=== PATIENT | female | born 1995 | race Caucasian/White ===

== ENCOUNTER 2016-11-05 14:17 | Day surgery (SDC) | payer BC, MEDICAID ==
[~2016-11-05] VITALS: Ht 175.3 cm; Wt 83.5 kg
[2016-11-05 14:50] LABS: BILIRUBIN,URINE NEGATIVE (NEGATIVE); KETONES,URINE NEGATIVE (NEGATIVE); LEUKOCYTE ESTERASE ,URINE 1+ (NEGATIVE); NITRITE,URINE NEGATIVE (NEGATIVE); PH,URINE 7 (5-9); PROTEIN,URINE NEGATIVE (NEGATIVE); UROBILINOGEN,URINE NORMAL (NORMAL)
[2016-11-05] MEDS ORDERED: LACTATED RINGERS 1,000 ML IV PRN (14:52)
[2016-11-05 14:58] LABS: WBC,URINE 0-2 /HPF
[2016-11-05] MEDS ORDERED: MIDAZOLAM 2 MG/2 ML (VERSED) VIAL IV ONE (15:00)
[2016-11-05] MEDS ORDERED: ceFAZolin 1,000 MG (ANCEF) VIAL ONE (15:03)
[2016-11-05] MEDS ORDERED: NORMAL SALINE (BAXTER MINI) 50 ML IV ONE (15:04)
[2016-11-05 15:11] LABS: BASOPHILS % (AUTO) 0 % (0-10); EOSINOPHILS % (AUTO) 0 % (0-10); LYMPHOCYTES # (AUTO) 1.7 X 10^3 (1.0-4.0); LYMPHOCYTES % (AUTO) 20 % (12-44); MEAN CORPUSCULAR HEMOGLOBIN 29 PG (25-34); MEAN CORPUSCULAR HGB CONC 35 G/DL (32-36); MEAN CORPUSCULAR VOLUME 83 FL (80-99); MEAN PLATELET VOLUME 9.9 FL (7.4-10.4); MONOCYTES # (AUTO) 0.6 X 10^3 (0.0-1.0); MONOCYTES % (AUTO) 7 % (0-12); NEUTROPHILS # (AUTO) 6.3 X 10^3 (1.8-7.8); NEUTROPHILS % (AUTO) 73 % (42-75); PLATELET COUNT 220 10^3/uL (130-400); RED BLOOD COUNT 4.58 10^6/uL (4.35-5.85); RED CELL DISTRIBUTION WIDTH 12.1 % (10.0-14.5); WHITE BLOOD COUNT 8.7 10^3/uL (4.3-11.0)
[2016-11-05 15:41] VITALS: BP 121/66
[2016-11-05] MEDS ORDERED: ceFAZolin 1 GM/NS 50 ML IVPB IV ONE ×2 (15:45)
[2016-11-05] MEDS ORDERED: clindamycin PO (15:49)
[2016-11-05] MEDS ORDERED: LACTATED RINGERS 1,000 ML IV ONE ×2 (16:06→17:13)
[2016-11-05] MEDS ORDERED: ONDANSETRON 4 MG/2 ML (SDV) Z0FRAN ONE (16:06)
[2016-11-05] MEDS ORDERED: fentaNYL INJECTION 100 MCG/2 ML AMP ONE (16:06)
[2016-11-05] MEDS ORDERED: DEXAMETHASONE PF 10 MG/ML (DECADRON) VIAL ONE (16:06)
[2016-11-05] MEDS ORDERED: proPOfol 200 MG/20 ML (DIPRIVAN) VIAL IV ONE (16:06)
[2016-11-05] MEDS ORDERED: MIDAZOLAM 2 MG/2 ML (VERSED) VIAL ONE (16:06)
[2016-11-05] MEDS ORDERED: SEVOFLURANE (ULTANE) 15 ML INHAL SOLN ONE ×3 (16:10→17:13)
[2016-11-05] MEDS ORDERED: KETOROLAC 30 MG/ML VIAL ONE (17:05)
[2016-11-05] MEDS ORDERED: morphine INJ 10 MG/ML 1ML (SYR OR VIAL) ONE (17:05)
--- NOTE | 2016-11-05 17:19 | Operative Report ---
Operative Report Date of Procedure/Surgery Nov 05, 2016 Post-Operative Diagnosis MISSED Procedure Performed Name of Procedure: SUCTION DILATION AND CURETTAGE Description of Procedure Instructional Resource Teacher Shana Leija, MS III Anesthesia Type: General Estimated blood loss (mL): 200 Specimen(s) collected products of conception Indications missed ab, no hearttones at 9 weeks Procedure with informed consent the patient was taken to the operating room where general anesthetic was found to be adequate. She was prepped and draped in the usual sterile fashion in the dorsal lithotomy position. There is no bleeding. The bladder was drained of clear yellow urine. A speculum was placed in the vagina and the cervix was grasped with a tenaculum. The uterus was gently sounded to approximately 10 cm. the cervix was now gently sounded with Liu dilators to allow insertion of a 9 mm curved curet. A gentle suction curette was done revealing products of conception and blood clots. Once this was completed I followed this up with a sharp curet until a gritty texture was heard. There is minimal bleeding noted. The tenaculum was removed from the cervix. The patient was taken to the recovery room in stable condition. Sponge and instrument counts were correct 2. Allergies and Home Medications Allergies Coded Allergies: No Known Drug Allergies (Unverified , 11/05/16) Home Medications PO QID (Reported) MANUEL AVERY DO Nov 05, 2016 17:19
[2016-11-05] MEDS ORDERED: D5 LR IV SOLUTION 1,000 ML IV SCH (17:20)
[2016-11-05] MEDS ORDERED: IBUP-1773 PO (17:27)
[2016-11-05] MEDS ORDERED: METH0.2T42 PO (17:27)
[2016-11-05] MEDS ORDERED: HYDR-3812 PO (17:27)
--- NOTE | 2016-11-05 17:29 | Discharge Inst-Women's Service ---
Discharge Inst-Women's Serv Depart Medication/Instructions New, Converted or Re-Newed RX: RX on Chart Instructions apply bactroban bid to lesion on buttock Expect bleeding, spotting for up to 1 week. Call if bleeding greater than 1 pad per hour. Or passage of tissue. Final Diagnosis missed skin lesion right buttock Consults/Follow Up Additional Follow Up: Yes (2-4 weeks) Activity Activity: Activity as Tolerated Driving Instructions: No Driving for 24 Hours NO SMOKING: NO SMOKING Nothing Inside Vagina: No Douching, No [place], No Tampons Diet Discharge Diet: No Restrictions Symptoms to Report to DrEmerita: Bleeding Excessive, Pain Increased, Fever Over 101 Degrees F, Vaginal Bleeding Increase, Vaginal Discharge Foul For Any Problems or Questions: Contact Your Physician MANUEL AVERY DO Nov 05, 2016 17:29
[2016-11-05] MEDS ORDERED: MEPERIDINE (DEMEROL) INJ 50 MG/ML IVP PRN (17:30)
[2016-11-05] MEDS ORDERED: ONDANSETRON 4 MG/2 ML (SDV) Z0FRAN IVP PRN ×2 (17:30)
[2016-11-05] MEDS ORDERED: HYDROcodone/APAP 5 MG/325 MG (LORTAB) TAB PO PRN (17:30)
[2016-11-05] MEDS ORDERED: KETOROLAC 30 MG/ML VIAL IVP ONE (17:30)
[2016-11-05] MEDS ORDERED: HYDROmorphone (DILAUDID) 2 MG/ML VIAL IVP PRN (17:30)
[2016-11-05] MEDS ORDERED: morphine INJ 10 MG/ML 1ML (SYR OR VIAL) IVP PRN (17:30)
[2016-11-05] MEDS ORDERED: KETOROLAC 30 MG/ML VIAL IVP PRN (17:30)
[2016-11-05] MEDS ORDERED: METHYLERGONOVINE 0.2 MG/ML (METHERGINE) AMP IM ONE (17:30)
[2016-11-05] MEDS ORDERED: MUPIROCIN 2% OINT 22 GM (BACTROBAN) TUBE TOP SCH (17:30)
[2016-11-05] MEDS ORDERED: IBUPROFEN 600 MG (MOTRIN) TAB PO SCH (18:00)
[2016-11-05 18:50] VITALS: BP 108/61
[2016-11-05 20:00] VITALS: BP 113/68
[2016-11-05] MEDS ORDERED: METHYLERGONOVINE 0.2 MG (MEHTERGINE) TAB PO SCH (21:00)
[2016-11-17] MEDS ORDERED: METH0.2T47 PO (22:41)
[2016-11-17] MEDS ORDERED: HYDR-3729 PO (22:41)
== END 2016-11-05 22:25 | disposition home or self-care (01) ==
LOC: SDC 14:17 → WS 18:37 → SDC 22:25
PROVIDERS: ATTEND Obstetrics & Gynecology
DX: O02.1 Missed abortion (principal); Z3A.09 9 weeks gestation of pregnancy
CPT/HCPCS: 36415; 81000; 85025; 86850; 86900; 86901; 87081; 94664; 96361

== ENCOUNTER 2016-11-17 17:55 | Day surgery (SDC) | payer BC, MEDICAID ==
[~2016-11-17] VITALS: Ht 175.3 cm; Wt 83.5 kg
[2016-11-17 02:40] VITALS: BP 98/67
[~2016-11-17 17:55] MED LIST: HYDR-3812 PO; IBUP-1773 PO; METH0.2T42 PO; clindamycin PO
[2016-11-17 20:15] LABS: BILIRUBIN,URINE NEGATIVE (NEGATIVE); KETONES,URINE NEGATIVE (NEGATIVE); LEUKOCYTE ESTERASE ,URINE NEGATIVE (NEGATIVE); NITRITE,URINE NEGATIVE (NEGATIVE); PH,URINE 5 (5-9); PROTEIN,URINE NEGATIVE (NEGATIVE); UROBILINOGEN,URINE NORMAL (NORMAL)
[2016-11-17 20:16] LABS: BASOPHILS % (AUTO) 0 % (0-10); EOSINOPHILS # (AUTO) 0.1 10^3/uL (0.0-0.3); EOSINOPHILS % (AUTO) 1 % (0-10); LYMPHOCYTES # (AUTO) 2.5 X 10^3 (1.0-4.0); LYMPHOCYTES % (AUTO) 33 % (12-44); MEAN CORPUSCULAR HEMOGLOBIN 29 PG (25-34); MEAN CORPUSCULAR HGB CONC 34 G/DL (32-36); MEAN CORPUSCULAR VOLUME 85 FL (80-99); MEAN PLATELET VOLUME 9.8 FL (7.4-10.4); MONOCYTES # (AUTO) 0.7 X 10^3 (0.0-1.0); MONOCYTES % (AUTO) 8 % (0-12); NEUTROPHILS # (AUTO) 4.4 X 10^3 (1.8-7.8); NEUTROPHILS % (AUTO) 57 % (42-75); PLATELET COUNT 318 10^3/uL (130-400); RED BLOOD COUNT 4.46 10^6/uL (4.35-5.85); RED CELL DISTRIBUTION WIDTH 12.1 % (10.0-14.5); WHITE BLOOD COUNT 7.7 10^3/uL (4.3-11.0)
[2016-11-17 20:19] LABS: INR 1.1 (0.8-1.4); PROTHROMBIN TIME PATIENT 13.5 SEC (12.2-14.7)
[2016-11-17 20:26] LABS: ALANINE AMINOTRANSFERASE 19 U/L (0-55); ALBUMIN 4.4 G/DL (3.2-4.5); ANION GAP 9 MMOL/L (5-14); ASPARTATE AMINO TRANSFERASE 17 U/L (5-34); BILIRUBIN,TOTAL 0.8 MG/DL (0.1-1.0); BLOOD UREA NITROGEN 10 MG/DL (7-18); BUN/CREATININE RATIO 14; CALCIUM 9.3 MG/DL (8.5-10.1); CARBON DIOXIDE 24 MMOL/L (21-32); CHLORIDE 104 MMOL/L (98-107); CREATININE SERUM 0.72 MG/DL (0.60-1.30); GFR ESTIMATED > 60; GLUCOSE 83 MG/DL (70-105); POTASSIUM 3.7 MMOL/L (3.6-5.0); SODIUM 137 MMOL/L (135-145); TOTAL PROTEIN 7.2 G/DL (6.4-8.2)
--- NOTE | 2016-11-17 20:46 | ED GU-Female ---
General Chief Complaint: -Female Stated Complaint: VAGINAL BLEEDING Nursing Triage Note: PT REPORTS HAD A D&C ON Tuesday11/05/[address] AVERY. PT REPORTS SHE CALLED DR. AVERY TODAY AND WAS TOLD TO COME TO ED BECAUSE SHE HAS CONTINUED TO PASS CLOTS AND BLEED AFTER PROCEDURE. PT ALSO REPORTS CRAMPING/BACK ACHE. Nursing Sepsis Screen: No Definite Risk Source: patient, family (patient's mother), spouse Exam Limitations: no limitations History of Present Illness Time seen by provider: 20:46 Initial Comments 21 yo female presents to the ED with c/o lower abdominal cramping and vaginal bleeding. Patient had a D&C on 11/05/[address] Avery. Patient reports continued bleeding. Passed large clots on Tuesday. Does report suprapubic cramping with occasional sharp pains radiates into the low back intermittently. Nothing by mouth since 1544 today. Did have one episode of chills and lightheadedness while at work today. Denies fevers. Timing/Duration: other (10 days) Severity/Quality: cramping, sharp Location: suprapubic Radiation: back Activities at Onset: none Prior Genitourinary Problems: none Sexual [place] History: less than 2 months ago, single partner Modifying Factors: Worsens With Palpation Allergies and Home Medications Allergies Coded Allergies: No Known Drug Allergies (Unverified , 11/05/16) Home Medications Ibuprofen 600 Mg Tablet #40 600 MG PO Q6HR Prescribed by: MANUEL AVERY on 11/05/161726 Methylergonovine Maleate 0.2 Mg Tablet #9 0.2 MG PO TID Prescribed by: MANUEL AVERY on 11/05/167 Constitutional: see HPI chillsNo diaphoresis, No fever, malaise EENTM: no symptoms reported Respiratory: No cough, No short of breath Cardiovascular: No chest pain, No edema, No syncope Gastrointestinal: see HPI abdominal painNo constipation, No diarrhea, loss of appetite nauseaNo vomiting Genitourinary: see HPIdenies burning, discharge (vaginal bleeding)denies dysuria, denies frequency, denies flank pain, pain : No Musculoskeletal: see HPI Skin: no symptoms reported Psychiatric/Neurological: No Symptoms Reported All Other Systemes Reviewed Negative Unless Noted: Yes (Negative excepted noted.) Past Mkcxvdw-Yqbagp-Xvcfok Hx Patient Social History Alcohol Use: Rarely Uses Recreational Drug Use: No Smoking Status: Never a Smoker Recent Foreign Travel: No Contact w/Someone Who Travel: No Recent Infectious Disease Expo: No Recent Hopitalizations: No Physical Abuse Screen: No Sexual Abuse: No Immunizations Up To Date Date of Influenza Vaccine: Sep 30, 2016 Seasonal Allergies Seasonal Allergies: No Surgeries HX Surgeries: Yes (D&C) Surgeries: Tonsillectomy Respiratory Hx Respiratory Disorders: No Cardiovascular Hx Cardiac Disorders: No Neurological Hx Neurological Disorders: No Reproductive System : No Hx : 1 Hx Para: 0 Hx Total # of Abortions (Spona: 1 Hx Reproductive Disorders: No Sexually Transmitted Disease: No HIV/AIDS: No Female Reproductive Disorders: Denies Genitourinary Hx Genitourinary Disorders: No Gastrointestinal Hx Gastrointestinal Disorders: No Musculoskeletal Hx Musculoskeletal Disorders: No Endocrine Hx Endocrine Disorders: No HEENT HX ENT Disorders: No Cancer Hx Cancer: No Psychosocial Hx Psychiatric Problems: No Integumentary HX Skin/Integumentary Disorder: Yes (sores on forearms with staff infection ( not MRSA)) Blood Transfusions Hx Blood Disorders: No Reviewed Nursing Assessment Reviewed/Agree w Nursing PMH: Yes Family Medical History Significant Family History: No Pertinent Family Hx Physical Exam Vital Signs Vital Sign - Last 12Hours 11/17/16 19:57 Temp 97.8 Pulse 72 Resp 18 B/P 119/67 Pulse Ox 97 Capillary Refill : Less Than 3 Seconds General Appearance: WD/WN no apparent distress HEENT: PERRL/EOMI pharynx normal Neck: supple normal inspection Cardiovascular: normal peripheral pulses regular rate, rhythm no edema no murmur Respiratory: lungs clear normal breath sounds no respiratory distress Gastrointestinal: normal bowel sounds soft no organomegalyNo distended, guarding (mild suprapubic guarding)No rebound, tenderness (lower abdominal tenderness) Back: normal inspection no CVA tenderness Extremities: no pedal edema normal capillary refill Neurologic/Psychiatric: alert normal mood/affect oriented x 3 Skin: normal color warm/dry Progress/Results/Core Measures Results/Orders Lab Results Laboratory Tests Test 11/17/16 19:53 11/17/16 20:05 Range/Units Activated Partial Thromboplast Time 30 24-35 SEC Alanine Aminotransferase (ALT/SGPT) 19 0-55 U/L Albumin 4.4 3.2-4.5 G/DL Alkaline Phosphatase 48 40-136 U/L Anion Gap 9 5-14 MMOL/L Aspartate Amino Transf (AST/SGOT) 17 5-34 U/L BUN/Creatinine Ratio 14 Basophils # (Auto) 0.0 0.0-0.1 10^3/uL Basophils (%) (Auto) 0 0-10 % Blood Urea Nitrogen 10 7-18 MG/DL Calcium Level 9.3 8.5-10.1 MG/DL Carbon Dioxide Level 24 21-32 MMOL/L Chloride Level 104 98-107 MMOL/L Creatinine 0.72 0.60-1.30 MG/DL Eosinophils # (Auto) 0.1 0.0-0.3 10^3/uL Eosinophils (%) (Auto) 1 0-10 % Estimat Glomerular Filtration Rate > 60 Glucose Level 83 70-105 MG/DL Hematocrit 38 35-52 % Hemoglobin 12.9 11.5-16.0 G/DL INR Comment 1.1 0.8-1.4 Lymphocytes # (Auto) 2.5 1.0-4.0 X 10^3 Lymphocytes (%) (Auto) 33 12-44 % Mean Corpuscular Hemoglobin 29 25-34 PG Mean Corpuscular Hemoglobin Concent 34 32-36 G/DL Mean Corpuscular Volume 85 80-99 FL Mean Platelet Volume 9.8 7.4-10.4 FL Monocytes # (Auto) 0.7 0.0-1.0 X 10^3 Monocytes (%) (Auto) 8 0-12 % Neutrophils # (Auto) 4.4 1.8-7.8 X 10^3 Neutrophils (%) (Auto) 57 42-75 % Platelet Count 318 130-400 10^3/uL Potassium Level 3.7 3.6-5.0 MMOL/L Prothrombin Time 13.5 12.2-14.7 SEC Red Blood Count 4.46 4.35-5.85 10^6/uL Red Cell Distribution Width 12.1 10.0-14.5 % Sodium Level 137 135-145 MMOL/L Total Bilirubin 0.8 0.1-1.0 MG/DL Total Protein 7.2 6.4-8.2 G/DL White Blood Count 7.7 4.3-11.0 10^3/uL Urine Bacteria NONE /HPF Urine Bilirubin NEGATIVE NEGATIVE Urine Casts NONE /LPF Urine Clarity SLIGHTLY CLOUDY Urine Color YELLOW Urine Crystals NONE /LPF Urine Culture Indicated NO Urine Glucose (UA) NEGATIVE NEGATIVE Urine Ketones NEGATIVE NEGATIVE Urine Leukocyte Esterase NEGATIVE NEGATIVE Urine Mucus NEGATIVE /LPF Urine Nitrite NEGATIVE NEGATIVE Urine Protein NEGATIVE NEGATIVE Urine RBC 5-10 H /HPF Urine RBC (Auto) 5+ H NEGATIVE Urine Specific [place] 1.020 1.016-1.022 Urine Squamous Epithelial Cells 2-5 /HPF Urine Urobilinogen NORMAL NORMAL MG/DL Urine WBC NONE /HPF Urine pH 5 5-9 My Orders Orders-IRON ROSADO Cbc With Automated Diff (11/17/16 20:09) Comprehensive Metabolic Panel (11/17/16 20:09) Protime With Inr (11/17/16 20:09) Partial Thromboplastin Time (11/17/16 20:09) Ua Culture If Indicated (11/17/16 20:09) Saline Lock/Iv-Start (11/17/16 20:09) Us Non Ob Pelvis Comp/Transvag (11/17/16 20:09) Ketorolac Injection (Toradol Injection) (11/17/16 21:18) Ondansetron Injection (Zofran Injectio (11/17/16 21:30) Ns Iv 1000 Ml (Sodium Chloride 0.9%) (11/17/16 21:18) Ondansetron Injection (Zofran Injectio (11/17/16 22:00) Famotidine Injection (Pepcid Injection) (11/17/16 21:46) Medications Given in ED Current Medications Medications Dose Ordered Sig/Deny Route Start Time Stop Time Status Last Admin Dose Admin Ondansetron HCl 4 mg 4 mg ONCE ONCE IVP 11/17/16 21:30 11/17/16 21:31 DC 11/17/16 21:24 4 MG Sodium Chloride 1,000 ml @ 0 mls/hr Q0M ONCE IV 11/17/16 21:18 11/17/16 21:20 DC 11/17/16 21:24 0 MLS/HR Vital Signs/I&O Vital Sign - Last 12Hours 11/17/16 19:57 Temp 97.8 Pulse 72 Resp 18 B/P 119/67 Pulse Ox 97 Blood Pressure Mean: 84 Diagnostic Imaging Diagonstic Imaging: Ultrasound Plain Films/CT/US/NM/MRI: pelvis Comments FINDINGS: Transabdominal imaging shows the uterus to measure 8.3 x 8.6 x 4.2 cm. There are retained products present within the uterus. There is fluid in the uterine cavity as well with endometrial cavity width of 2 cm. Transabdominal imaging failed to visualize the ovaries. No free fluid is demonstrated. IMPRESSION: Findings are consistent with retained products of conception with associated hemorrhage in the uterine cavity, as described. Dictated by: Dictated on workstation # [id number] Reviewed: Reviewed by Me (radiology report reviewed by me) Departure Communication Time/Spoke to Admitting Phy: 21:22 Communication 2122 patient case discussed with Dr. German, requests surgery crew to be contacted for D&C tonight. 2144 Dr. German present in the ED to evaluate patient and for D&C. Final Cleaner notified. Progress Notes All laboratory findings and diagnostic findings discussed with the patient and family. Plan for D&C by Dr. eGrman discussed with the patient. Patient voiced understanding and agrees with the treatment plan. Patient reports improvement in symptoms with the Toradol, however continues to have nausea. Repeat Zofran 4 mg 1 dose and Pepcid 20 mg IV 1 dose. Patient case and plan for admission discussed with Dr. Salazar, she agrees with the treatment plan. Impression Impression: Primary Impression: Retained products of conception Disposition: ADMITTED INPATIENT Condition: Stable Decision to Admit Reason: Admit from ER (General) Decision to Admit/Date: Nov 17, 2016 Time/Decision to Admit Time: 21:25 Departure-Patient Inst. Referrals: MANUEL AVERY DO (PCP) Primary Care Physician IRON ROSADO Nov 17, 2016 20:46
--- NOTE | 2016-11-17 21:05 | Diagnostic Imaging Report ---
INDICATION: D&C on 11/05/2016. Continued to pass blood and clots with cramping. Low-grade fever. EXAMINATION: Non-OB pelvic sonogram. FINDINGS: Transabdominal imaging shows the uterus to measure 8.3 x 8.6 x 4.2 cm. There are retained products present within the uterus. There is fluid in the uterine cavity as well with endometrial cavity width of 2 cm. Transabdominal imaging failed to visualize the ovaries. No free fluid is demonstrated. IMPRESSION: Findings are consistent with retained products of conception with associated hemorrhage in the uterine cavity, as described. Dictated by: Dictated on workstation # [id number]
[2016-11-17] MEDS ORDERED: NS IV 1000 ML 1,000 ML IV ONE (21:18)
[2016-11-17] MEDS ORDERED: KETOROLAC 30 MG/ML VIAL IVP STA (21:18)
[2016-11-17] MEDS ORDERED: ONDANSETRON 4 MG/2 ML (SDV) Z0FRAN IVP ONE ×2 (21:30→22:00)
[2016-11-17] MEDS ORDERED: FAMOTIDINE 20MG/2ML IV (PEPCID) ONE (21:41)
[2016-11-17] MEDS ORDERED: FAMOTIDINE 20MG/2ML IV (PEPCID) IV STA (21:46)
[2016-11-17] MEDS ORDERED: MIDAZOLAM 2 MG/2 ML (VERSED) VIAL ONE (21:49)
[2016-11-17] MEDS ORDERED: SUCCINYLCHOLINE INJ 100 MG/5 ML SYR ONE (21:49)
[2016-11-17] MEDS ORDERED: proPOfol 200 MG/20 ML (DIPRIVAN) VIAL IV ONE (21:49)
[2016-11-17] MEDS ORDERED: fentaNYL INJECTION 100 MCG/2 ML AMP ONE (21:49)
[2016-11-17] MEDS ORDERED: DOXYCYCLINE 100 MG (VIBRAMYCIN) TABLET PO STA (21:52)
--- NOTE | 2016-11-17 21:53 | History & Physical-OB/GYN ---
History of Present Illness History of Present Illness Reason for visit/HPI Pankaj is a 21 y/o G1 patient of Dr. Avery who underwent suction D&C on 11/05/16 with pathology c/w products of conception. She presents this evening after having continued bleeding with clots since the procedure. She thought she might be febrile today with hot flashes and continued cramping (did not take her temp however). She also felt dizzy, but did not pass out. She denies any other complaints. Date of Admission 11/17/16 I consulted on this patient on 11/17/16 21:48 Attending Physician Pearl Acuña MD Admitting Physician Dorcas Avery DO Consult Allergies and Home Medications Allergies Coded Allergies: No Known Drug Allergies (Unverified , 11/05/16) Home Medications Ibuprofen 600 Mg Tablet #40 600 MG PO Q6HR Prescribed by: DORCAS AVERY on 11/05/16 1727 Methylergonovine Maleate 0.2 Mg Tablet #9 0.2 MG PO TID Prescribed by: DORCAS AVERY on 11/05/16 1727 Past Mqdiezt-Llptbo-Hdeabz Hx Patient Social History Alcohol Use: Rarely Uses Recreational Drug Use: No Smoking Status: Never a Smoker Physical Abuse Screen: No Sexual Abuse: No Recent Foreign Travel: No Contact w/other who traveled: No Recent Hopitalizations: No Recent Infectious Disease Expo: No Immunizations Up To Date Date of Influenza Vaccine: Sep 30, 2016 Seasonal Allergies Seasonal Allergies: No Surgeries HX Surgeries: Yes (DNC) Surgeries: Tonsillectomy Respiratory Hx Respiratory Disorders: No Cardiovascular Hx Cardiovascular Disorders: No Neurological Hx Neurological Disorders: No Reproductive System Hx Reproductive Disorders: No Sexually Transmitted Disease: No HIV/AIDS: No Genitourinary Hx Genitourinary Disorders: No Gastrointestinal Hx Gastrointestinal Disorders: No Musculoskeletal Hx Musculoskeletal Disorders: No Endocrine Hx Endocrine Disorders: No HEENT HX ENT Disorders: No Cancer Hx Cancer: No Psychosocial Hx Psychiatric Problems: No Integumentary HX Skin/Integumentary Disorder: Yes (sores on forearms with staff infection ( not MRSA)) Blood Transfusions Hx Blood Disorders: No Constitutional: chills fever EENTM: no symptoms reported Respiratory: no symptoms reported Cardiovascular: No chest pain, No palpitations, No syncope Gastrointestinal: no symptoms reported Genitourinary: pain : No Musculoskeletal: no symptoms reported Skin: no symptoms reported Psychiatric/Neurological: No Symptoms Reported Physical Exam Physical Exam Vital Signs Vital Signs Date Time Temp Pulse Resp B/P Pulse Ox O2 Delivery O2 Flow Rate FiO2 11/17/16 19:57 97.8 72 18 119/67 97 Capillary Refill : Less Than 3 Seconds Labs Laboratory Tests 11/17/16 19:53: Activated Partial Thromboplast Time 30, Alanine Aminotransferase (ALT/SGPT) 19, Albumin 4.4, Alkaline Phosphatase 48, Anion Gap 9, Aspartate Amino Transf (AST/ SGOT) 17, BUN/Creatinine Ratio 14, Basophils # (Auto) 0.0, Basophils (%) (Auto) 0, Blood Urea Nitrogen 10, Calcium Level 9.3, Carbon Dioxide Level 24, Chloride Level 104, Creatinine 0.72, Eosinophils # (Auto) 0.1, Eosinophils (%) (Auto) 1, Estimat Glomerular Filtration Rate > 60, Glucose Level 83, Hematocrit 38, Hemoglobin 12.9, INR Comment 1.1, Lymphocytes # (Auto) 2.5, Lymphocytes (%) ( Auto) 33, Mean Corpuscular Hemoglobin 29, Mean Corpuscular Hemoglobin Concent 34 , Mean Corpuscular Volume 85, Mean Platelet Volume 9.8, Monocytes # (Auto) 0.7, Monocytes (%) (Auto) 8, Neutrophils # (Auto) 4.4, Neutrophils (%) (Auto) 57, Platelet Count 318, Potassium Level 3.7, Prothrombin Time 13.5, Red Blood Count 4.46, Red Cell Distribution Width 12.1, Sodium Level 137, Total Bilirubin 0.8, Total Protein 7.2, White Blood Count 7.7 11/17/16 20:05: Urine Bacteria NONE, Urine Bilirubin NEGATIVE, Urine Casts NONE, Urine Clarity SLIGHTLY CLOUDY, Urine Color YELLOW, Urine Crystals NONE, Urine Culture Indicated NO, Urine Glucose (UA) NEGATIVE, Urine Ketones NEGATIVE, Urine Leukocyte Esterase NEGATIVE, Urine Mucus NEGATIVE, Urine Nitrite NEGATIVE, Urine Protein NEGATIVE, Urine RBC 5-10H, Urine RBC (Auto) 5+H, Urine Specific [place] 1.020, Urine Squamous Epithelial Cells 2-5, Urine Urobilinogen NORMAL, Urine WBC NONE, Urine pH 5 Radiology Studies see sono - c/w products of conception General Appearance: No Apparent Distress Respiratory: No Accessory Muscle Use Cardiovascular: Normal Peripheral Pulses (pulse 70s) Abdominal: non tender, soft Gynecology/General: Other (deferred to OR) Assessment/Plan Assessment and Plan 21 y/o s/p D&C for missed AB on 11/05/[address] Avery presenting with continued vaginal bleeding, found to have retained products of conception No fever, no leukocytosis, no evidence of infection Rh+ Reviewed with pt and family indication for repeat D&C under ultrasound guidance. Risk of bleeding, infection, damage to surrounding structures, risk of adhesion formation and subsequent fertility issues reviewed. Will plan to continue with 24 hours of methergine Perioperative doxycycline for ppx Will plan to dc after procedure with close f/u with PEARL Nunez MD Nov 17, 2016 21:53
[2016-11-17] MEDS ORDERED: DOXYCYCLINE 100 MG (VIBRAMYCIN) TABLET ONE ×2 (21:56→23:05)
[2016-11-17] MEDS ORDERED: KETOROLAC 30 MG/ML VIAL ONE (22:11)
[2016-11-17] MEDS ORDERED: PROMETHAZINE INJ 25 MG/ML (PHENERGAN) AMP ONE (22:11)
[2016-11-17] MEDS ORDERED: morphine INJ 10 MG/ML 1ML (SYR OR VIAL) ONE (22:11)
[2016-11-17] MEDS ORDERED: SEVOFLURANE (ULTANE) 15 ML INHAL SOLN ONE (22:35)
[2016-11-17] MEDS ORDERED: LACTATED RINGERS 1,000 ML IV ONE (22:35)
[2016-11-17] MEDS ORDERED: D5 LR IV SOLUTION 1,000 ML IV SCH (22:38)
[2016-11-17] MEDS ORDERED: HYDR-3729 PO (22:41)
[2016-11-17] MEDS ORDERED: METH0.2T47 PO (22:41)
--- NOTE | 2016-11-17 22:42 | Discharge Inst-Women's Service ---
Discharge Inst-Women's Serv Depart Medication/Instructions New, Converted or Re-Newed RX: RX on Chart Final Diagnosis Retained products of conception Consults/Follow Up Additional Follow Up: Yes Orders/Referrals Keep follow-up as scheduled on 11/[address] Dennis Activity Driving Instructions: No Driving for 24 Hours (or while taking narcotic pain medications) NO SMOKING: NO SMOKING Nothing Inside Vagina: No Douching, No [place], No Tampons Other Activity Take methergine orally every 6 hours for 24 hours - this is to help stop bleeding Diet Discharge Diet: No Restrictions Symptoms to Report to : Bleeding Excessive, Pain Increased, Fever Over 101 Degrees F, Pain/Pressure in Chest, Vaginal Bleeding Increase, Dizziness/Fainting , Nausea/Vomiting, Shortness of Breath For Any Problems or Questions: Contact Your Physician, Go to Emergency Room Skin/Wound Care Bathing Instructions: CYRIL Gaines MD Nov 17, 2016 22:42
[2016-11-17] MEDS ORDERED: KETOROLAC 30 MG/ML VIAL IVP ONE (22:45)
[2016-11-17] MEDS ORDERED: ONDANSETRON 4 MG/2 ML (SDV) Z0FRAN IVP PRN (22:45)
[2016-11-17] MEDS ORDERED: LACTATED RINGERS 1,000 ML IV PRN (22:54)
--- NOTE | 2016-11-17 22:56 | OB/GYN Operative Report ---
Operative Report Date of Procedure: November 17, 2016 Preoperative Diagnosis: Retained products of conception Postoperative Diagnosis: Same Procedure: Suction dilatation and curettage under ultrasound guidance Surgeon: Pearl German MD Anesthesia: General Estimated Blood Loss: Minimal Specimens: Products of conception to pathology Indications for Procedure: This is a 21 y/o who underwent dilatation and curettage for missed on November 05, [address] Avery. She had continued bleeding and cramping and presented to the ER today for care. She was found to be hemodynamically stable with a very small drop in her hemoglobin since previously checked (13.3 to 12.9) with no leukocytosis or fever, but was found to have retained products of conception with active bleeding at the fundus and a 2cm endometrial stripe on ultrasound. Rh status was noted to be positive. She was counseled on therapy and elected to undergo repeat suction dilatation and curettage. I did ask for ultrasound guidance as this was her second procedure. Findings: Normal appearing external genitalia, small amount of blood in vaginal vault. Products of conception noted with suction curettage. Procedure: The patient was taken to the operating room with IV fluids running. Sequential compression devices were placed on her bilateral lower extremities. Loreta- operative doxycycline was administered. General anesthesia was obtained without difficulty. She was positioned in the dorsal lithotomy position with the use of Yellofin stirrups. She was prepped and draped in the typical sterile fashion. The ultrasound was positioned on the abdomen by the artificial insemination technician. The uterus was visualized with a thickened endometrial stripe and active bleeding noted at the fundus. The bladder was not emptied as it was aiding in visualization sonographically. A speculum was placed in the vagina. An Allis was placed on the anterior lip of the cervix. The cervix was dilated with Liu dilators to a level of 21 Liu. An 8 mm curved suction curette was inserted into the uterine cavity and activated; products of conception were noted at this time. The curette was slowly removed while turning it gently both clockwise and counterclockwise. This was repeated until no further products of conception were noted. A medium sharp curette was introduced into the uterine cavity and the cavity was gently curetted in a clockwise circumferential fashion until a gritty feeling was noted. The ultrasound revealed an endometrial stripe of 3mm and no active bleeding. All instruments were removed from the uterus, and very minimal bleeding was noted. The Allis was removed and the cervix was hemostatic. All instruments were removed from the vagina. The patient was awakened from anesthesia without difficulty and taken to recovery in stable condition. Complications: None Disposition: Recovery, stable - will discharge home with 24 hours of methergine and administer another dose of loreta-operative doxycycline Copies To 1: MANUEL AVERY ERIN N MD Nov 17, 2016 22:56
[2016-11-17] MEDS ORDERED: ONDANSETRON 4 MG/2 ML (SDV) Z0FRAN IV PRN (23:00)
[2016-11-17] MEDS ORDERED: METHYLERGONOVINE 0.2 MG (MEHTERGINE) TAB PO ONE (23:09)
[2016-11-17] MEDS: morphine INJ 10 MG/ML 1ML (SYR OR VIAL) IV PRN ×2 (23:11→23:24)
[2016-11-18] VITALS: BP 100/72
[2016-11-18] MEDS ORDERED: DOXYCYCLINE 100 MG (VIBRAMYCIN) TABLET PO SCH
[2016-11-18] MEDS ORDERED: ONDANSETRON 4 MG/2 ML (SDV) Z0FRAN ONE (00:10)
[2016-11-18] MEDS ORDERED: HYDROcodone/APAP 5 MG/325 MG (LORTAB) TAB PO PRN (00:15)
[2016-11-18 01:00] VITALS: BP 99/63
[2016-11-18] MEDS ORDERED: ONDANSETRON 8 MG (ZOFRAN) ORAL DISSOLVE TAB ONE (01:24)
[2016-11-18] MEDS ORDERED: ONDANSETRON 8 MG (ZOFRAN) ORAL DISSOLVE TAB PO ONE (01:30)
[2016-11-18] MEDS ORDERED: ONDA4TAB8 PO (01:44)
[2016-11-18] MEDS ORDERED: METHYLERGONOVINE 0.2 MG (MEHTERGINE) TAB PO ONE ×2 (02:34)
--- NOTE | 2016-11-18 07:52 | Diagnostic Imaging Report ---
PROCEDURE: Ultrasound guidance provided in the OR. INDICATION: D&C. FINDINGS AND IMPRESSION: Ultrasound guidance was provided in the OR to Dr. German for performing D&C. Provided images demonstrate normal size of the uterus and mildly distended urinary bladder. Dictated by: Dictated on workstation # [id number]
== END 2016-11-18 02:50 | disposition home or self-care (01) ==
LOC: EDUNIT# 17:55 → ER 17:57 → SDC 21:43 → WS 23:50 → SDC 11-18 02:50
PROVIDERS: ATTEND Obstetrics & Gynecology
DX: O02.1 Missed abortion (principal); Z3A.09 9 weeks gestation of pregnancy
CPT/HCPCS: 36415; 76830; 76856; 80053; 81000; 85025; 85610; 85730; 96361; 96374; 96375

== ENCOUNTER → 2017-02-03 | Outpatient (CLI) | payer BC, MEDICAID ==
[~2017-02-03] MED LIST changes: +HYDR-3729 PO; +METH0.2T47 PO; +ONDA4TAB8 PO
--- NOTE | 2017-02-03 18:18 | Diagnostic Imaging Report ---
INDICATION: Size and date discrepancy. TECHNIQUE: OB sonography performed with transvaginal views. FINDINGS: A single live intrauterine fetus is seen measuring at 6 weeks 3 days by crown-rump length with sonographic EDC of 09/26/2017. heart rate is 128 beats per minute. There is a corpus luteal cyst of the left ovary measuring 1.6 cm. IMPRESSION: Single live intrauterine fetus measuring 6 weeks 3 days in size. Recommend followup later in for full anatomical survey. There is a corpus luteal cyst of the left ovary measuring 1.6 cm. Dictated by: Dictated on workstation # [id number]
== END ==
LOC: RAD 14:05
PROVIDERS: ATTEND Obstetrics & Gynecology
DX: O26.841 Uterine size-date discrepancy, first trimester (principal); Z3A.01 Less than 8 weeks gestation of pregnancy
CPT/HCPCS: 76817

== ENCOUNTER → 2017-05-13 | Outpatient (CLI) | payer BC, MEDICAID ==
--- NOTE | 2017-05-13 17:04 | Diagnostic Imaging Report ---
INDICATION: survey. OB sonography performed in the routine fashion and compared to 02/03/17. FINDINGS: Single live intrauterine fetus is seen measuring 21 weeks 3 days in size. This is about 6 days larger than expected from original dates but probably within variation. heart rate is 143 beats per minute. Placenta is fundal with no evidence of previa. Amniotic fluid is qualitatively unremarkable. Cervical length is 3.5 cm. The survey showed no detectable abnormalities although four-chamber heart view and intracranial structures are not well seen due to position. Biometrical measurements are as follows: Biparietal 5.26 cm, age 22 weeks 0 days. Head circumference 18.45 cm, age 20 weeks 6 days. Abdominal circumference 16.13 cm, age 21 weeks 2 days. Femur length 3.51 cm, age 21 weeks 1 days. Sonographic estimate age: 21 weeks 3 days. Sonographic estimated date of delivery: 09/20/2017. Estimated Weight: 403 gm (+/- 59 gm). LMP percentile: 77%. heart rate: 143 beats per minute. Cervical length: 3.5 cm. number: 1 of 1. IMPRESSION: Single live intrauterine fetus measuring 21 weeks 3 days in size, this is about 6 days larger than expected from original dates but probably within variation, suggest continued followup as warranted. survey showed no detectable abnormalities although heart and intracranial structures are not well seen. Consider limited followup as clinically warranted. Dictated by: Dictated on workstation # [id number]
== END ==
LOC: RAD 12:31
PROVIDERS: ATTEND Obstetrics & Gynecology
DX: Z36 Encounter for antenatal screening of mother (principal); Z3A.21 21 weeks gestation of pregnancy
CPT/HCPCS: 76805; 76817

== ENCOUNTER 2017-08-01 23:24 | Outpatient (CLI) | payer BC, MEDICAID ==
[~2017-08-01] VITALS: Ht 175.3 cm; Wt 106.6 kg
[2017-08-01 23:42] VITALS: BP 148/85
[2017-08-01 23:50] LABS: BILIRUBIN,URINE NEGATIVE (NEGATIVE); KETONES,URINE NEGATIVE (NEGATIVE); LEUKOCYTE ESTERASE ,URINE 3+ (NEGATIVE); NITRITE,URINE NEGATIVE (NEGATIVE); PH,URINE 8 (5-9); PROTEIN,URINE NEGATIVE (NEGATIVE); UROBILINOGEN,URINE NORMAL (NORMAL)
[2017-08-01] MEDS ORDERED: PREN-142 PO (23:53)
[2017-08-01] MEDS ORDERED: LORA1TAB59 PO (23:55)
[2017-08-02] VITALS: BP 140/83
[2017-08-02 00:10] VITALS: BP 132/78
[2017-08-02] MEDS ORDERED: CEPH-507 PO (00:15)
== END 2017-08-02 00:20 | disposition home or self-care (01) ==
LOC: WSo 23:24 → LDRP 23:25 → WSo 08-02 00:20
PROVIDERS: ATTEND Obstetrics & Gynecology
DX: O23.93 Unspecified genitourinary tract infection in pregnancy, third trimester (principal); R10.2 Pelvic and perineal pain; Z3A.31 31 weeks gestation of pregnancy
CPT/HCPCS: 81000; 87088; 99213

== ENCOUNTER 2017-08-19 11:55 | Outpatient (CLI) | payer BC, MEDICAID ==
[~2017-08-19] VITALS: Ht 175.3 cm; Wt 110.4 kg
[~2017-08-19 11:55] MED LIST changes: +CEPH-507 PO; +LORA1TAB59 PO; +PREN-142 PO
[2017-08-19 11:57] VITALS: BP 165/103
[2017-08-19 12:15] VITALS: BP 158/98
[2017-08-19 12:30] VITALS: BP 159/85
[2017-08-19 13:00] LABS: BASOPHILS % (AUTO) 0 % (0-10); EOSINOPHILS % (AUTO) 0 % (0-10); LYMPHOCYTES # (AUTO) 1.6 X 10^3 (1.0-4.0); LYMPHOCYTES % (AUTO) 10 % (12-44); MEAN CORPUSCULAR HEMOGLOBIN 29 PG (25-34); MEAN CORPUSCULAR HGB CONC 34 G/DL (32-36); MEAN CORPUSCULAR VOLUME 85 FL (80-99); MONOCYTES # (AUTO) 1.3 X 10^3 (0.0-1.0); MONOCYTES % (AUTO) 8 % (0-12); NEUTROPHILS # (AUTO) 12.1 X 10^3 (1.8-7.8); NEUTROPHILS % (AUTO) 81 % (42-75); PLATELET COUNT 148 10^3/uL (130-400); RED BLOOD COUNT 3.91 10^6/uL (4.35-5.85)
[2017-08-19 13:16] LABS: BAND NEUTROPHILS 0 %; BASOPHILS % (MANUAL) 0 %; EOSINOPHILS % (MANUAL) 0 %; LYMPHOCYTES % (MANUAL) 16 %; NEUTROPHILS % (MANUAL) 81 %
[2017-08-19 13:26] LABS: ALANINE AMINOTRANSFERASE 52 U/L (0-55); ALBUMIN 2.9 GM/DL (3.2-4.5); ANION GAP 8 MMOL/L (5-14); ASPARTATE AMINO TRANSFERASE 31 U/L (5-34); BILIRUBIN,TOTAL 0.2 MG/DL (0.1-1.0); BLOOD UREA NITROGEN 15 MG/DL (7-18); BUN/CREATININE RATIO 22; CALCIUM 8.5 MG/DL (8.5-10.1); CARBON DIOXIDE 19 MMOL/L (21-32); CHLORIDE 110 MMOL/L (98-107); CREATININE SERUM 0.67 MG/DL (0.60-1.30); GFR ESTIMATED > 60; GLUCOSE 90 MG/DL (70-105); POTASSIUM 3.9 MMOL/L (3.6-5.0); SODIUM 137 MMOL/L (135-145); TOTAL PROTEIN 5.6 GM/DL (6.4-8.2); URIC ACID 7.3 MG/DL (2.6-7.2)
[2017-08-19 13:32] VITALS: BP 128/82
--- NOTE | 2017-08-19 14:04 | Diagnostic Imaging Report ---
INDICATION: Elevated blood pressure. TECHNIQUE: Multiple real-time grayscale images were obtained over the gravid uterus. COMPARISON: None FINDINGS: There is single live intrauterine fetus present, vertex. heartbeat is normal. The amniotic fluid index is normal measuring 7 cm. Fetus is active. breathing was demonstrated. Biometrical measurements are as follows: Biparietal 8.8 cm, age 35 weeks 3 days. Head circumference 32.4 cm, age 36 weeks 5 days. Abdominal circumference 29.8 cm, age 33 weeks 6 days. Femur length 6.8 cm, age 35 weeks 0 days. Sonographic estimate age: 35 weeks 2 days. Sonographic estimated date of delivery: 09/21/17. Estimated Weight: 2464 gm (+/- 360 gm). LMP percentile: 45%. heart rate: 126 beats per minute. number: 1 of 1. IMPRESSION: 1. Normal biophysical profile scoring 8 of potential 8 points by ultrasound. 2. Current sonographic dates of 35 weeks 2 days. weight is within one standard deviation. Dictated by: Dictated on workstation # [id number]
[2017-08-19 14:12] LABS: PROTEIN/CREATININE RATIO 3.54
[2017-08-20] MEDS ORDERED: ACET325T38 PO ×2 (18:20)
--- NOTE | 2017-08-22 12:18 | Physician Query-Final Dx ---
GIO VAZQUEZ 08/22/17 1218: Clinic Account Progress/Dx Physician Query: Please give diagnosis Date of Service Aug 19, 2017 at 11:55 FABIO LLANOS DO 08/23/17 1019: Clinic Account Progress/Dx DIAGNOSIS: Diagnosis 34 week IUP Mild preE GIO VAZQUEZ Aug 22, 2017 12:18 FABIO LLANOS DO Aug 23, 2017 10:19
== END 2017-08-19 14:46 | disposition home or self-care (01) ==
LOC: LDRP 11:55 → WSo 11:55
PROVIDERS: ATTEND Obstetrics & Gynecology
DX: O14.93 Unspecified pre-eclampsia, third trimester (principal); Z3A.34 34 weeks gestation of pregnancy
CPT/HCPCS: 36415; 76805; 76819; 80053; 82570; 84156; 84550; 85007; 85027; 99214

== ENCOUNTER 2017-08-20 18:05 | Inpatient (IN) | payer BC, MEDICAID ==
[~2017-08-20] VITALS: Ht 175.3 cm; Wt 110.7 kg
[2017-08-20] VITALS (17 sets, daily range): BP systolic 141–191; BP diastolic 67–113
[2017-08-20] MEDS ORDERED: ACET325T38 PO ×2 (18:20)
[2017-08-20 18:28] LABS: BILIRUBIN,URINE NEGATIVE (NEGATIVE); KETONES,URINE NEGATIVE (NEGATIVE); LEUKOCYTE ESTERASE ,URINE 1+ (NEGATIVE); NITRITE,URINE NEGATIVE (NEGATIVE); PH,URINE 6 (5-9); PROTEIN,URINE 4+ (NEGATIVE); UROBILINOGEN,URINE NORMAL (NORMAL)
[2017-08-20] MEDS ORDERED: LABETALOL HCL 20 MG/4 ML VIAL IV ONE ×2 (18:30→19:45)
[2017-08-20] MEDS ORDERED: LABETALOL 200 MG (NORMODYNE) TAB PO ONE (18:30)
[2017-08-20 18:36] LABS: SQUAMOUS EPITHELIAL CELL,UR 25-50 /HPF
[2017-08-20] MEDS: NS IV 1000 ML 1,000 ML IV SCH (18:45)
[2017-08-20 19:09] LABS: BASOPHILS % (AUTO) 0 % (0-10); EOSINOPHILS % (AUTO) 0 % (0-10); LYMPHOCYTES # (AUTO) 2.3 X 10^3 (1.0-4.0); LYMPHOCYTES % (AUTO) 17 % (12-44); MEAN CORPUSCULAR HEMOGLOBIN 29 PG (25-34); MEAN CORPUSCULAR HGB CONC 34 G/DL (32-36); MEAN CORPUSCULAR VOLUME 86 FL (80-99); MEAN PLATELET VOLUME 12.6 FL (7.4-10.4); MONOCYTES # (AUTO) 1.5 X 10^3 (0.0-1.0); MONOCYTES % (AUTO) 12 % (0-12); NEUTROPHILS # (AUTO) 9.3 X 10^3 (1.8-7.8); NEUTROPHILS % (AUTO) 71 % (42-75); PLATELET COUNT 151 10^3/uL (130-400); RED BLOOD COUNT 3.91 10^6/uL (4.35-5.85); RED CELL DISTRIBUTION WIDTH 12.1 % (10.0-14.5); WHITE BLOOD COUNT 13.1 10^3/uL (4.3-11.0)
[2017-08-20 19:27] LABS: ALANINE AMINOTRANSFERASE 38 U/L (0-55); ALBUMIN 2.8 GM/DL (3.2-4.5); ANION GAP 9 MMOL/L (5-14); ASPARTATE AMINO TRANSFERASE 21 U/L (5-34); BILIRUBIN,TOTAL 0.2 MG/DL (0.1-1.0); BLOOD UREA NITROGEN 14 MG/DL (7-18); BUN/CREATININE RATIO 22; CALCIUM 7.9 MG/DL (8.5-10.1); CARBON DIOXIDE 19 MMOL/L (21-32); CHLORIDE 110 MMOL/L (98-107); CREATININE SERUM 0.64 MG/DL (0.60-1.30); GFR ESTIMATED > 60; GLUCOSE 77 MG/DL (70-105); POTASSIUM 3.8 MMOL/L (3.6-5.0); SODIUM 138 MMOL/L (135-145); TOTAL PROTEIN 5.3 GM/DL (6.4-8.2); URIC ACID 7.5 MG/DL (2.6-7.2)
[2017-08-20] MEDS ORDERED: ACETAMINOPHEN 500 MG TAB (TYLENOL) PO PRN (19:45)
[2017-08-20] MEDS ORDERED: FAMOTIDINE 20MG/2ML IV (PEPCID) IVP ONE (19:45)
--- OUTSIDE RECORDS SUMMARY | 2017-08-20 20:49 | XMS REPORT ---
Author Author LAWRENEC VARGHESE [facility] Address [address] [place] [address] Care Team Providers Care Zigzag Appliquer Name Role Phone LAWRENCE VARGHESE Unavailable PROBLEMS Type Condition ICD9-CM Code [id number] Code Onset Dates Condition Status SNOMED Code Problem Perennial allergic rhinitis, unspecified allergic rhinitis trigger J30.89 Active [id number] ALLERGIES Unknown Allergies SOCIAL HISTORY No smoking Hx information available PLAN OF CARE VITAL SIGNS MEDICATIONS Unknown Medications RESULTS No Results PROCEDURES No Known procedures IMMUNIZATIONS No Known Immunizations
--- OUTSIDE RECORDS SUMMARY | 2017-08-20 20:49 | XMS REPORT ---
Author LAWRENCE Resendiz [facility] Address [address] [place] [address] Care Team Providers Care Admissions Coordinator Name Role Phone LAWRENCE VARGHESE Unavailable PROBLEMS Type Condition ICD9-CM Code [id number] Code Onset Dates Condition Status SNOMED Code Problem Perennial allergic rhinitis, unspecified allergic rhinitis trigger J30.89 Active [id number] ALLERGIES No Information SOCIAL HISTORY Never Assessed PLAN OF CARE VITAL SIGNS MEDICATIONS Unknown Medications RESULTS Name Result Date Reference Range TEST, URINE (IN HOUSE) 2017-01-13 RESULTS POSITIVE Lot # [id number] Control + Exp date Jan 2018 PROCEDURES Procedure Date Ordered Result Body Site URINE TEST January 13, 2017 IMMUNIZATIONS No Known Immunizations MEDICAL (GENERAL) HISTORY Type Description Date Surgical History tonsillectomy
[2017-08-20] MEDS ORDERED: AMPICILLIN INJECTION 2,000 MG in NS (IVPB) 50 ML IV SCH (20:53)
[2017-08-20] MEDS ORDERED: TERBUTALINE INJ 1 MG/ML (BRETHINE) AMP SC PRN (21:00)
[2017-08-20] MEDS ORDERED: HYDROmorphone (DILAUDID) 2 MG/ML VIAL IVP PRN (21:00)
[2017-08-20] MEDS ORDERED: MAGNESIUM 2 GM/50 ML IVPB 2 GM in MAGNESIUM 4 GM/100 ML IVPB 100 ML IV ONE (21:00)
[2017-08-20] MEDS ORDERED: LABETALOL 200 MG (NORMODYNE) TAB PO SCH (21:00)
[2017-08-20] MEDS ORDERED: CALCIUM GLUC. 10% 4.65 MEQ/10 ML VIAL IV PRN (21:00)
[2017-08-20] MEDS ORDERED: MISOPROSTOL 100 MCG (CYTOTEC) TAB PO ONE (21:00)
[2017-08-20] MEDS: MAGNESIUM SULFATE DRIP 500 ML IV SCH (21:55)
[2017-08-20] MEDS: CATHETER FLUSH 10 ML SYR IV SCH (22:13)
[2017-08-21] VITALS (41 sets, daily range): BP systolic 133–176; BP diastolic 72–106
--- NOTE | 2017-08-21 01:27 | History & Physical-OB ---
OB - Chief Complaint & HPI Date/Time Date of Admission: Date of Admission: Aug 20, 2017 at 8:56 pm Time Seen by Provider: 00:55 Chief Complaint/History OB-Reason for Admission/Chief: Obstetrical Complication Hx : 2 Hx Para: 0 Expected Date of Delivery: Sep 26, 2017 Gestational Age in Weeks: 34 Gestational Age in Days: 6 Other reason for admission: This 22-year-old female was admitted initially for observation due to onset of headache and vision changes with a diagnosis of mild preeclampsia. The patient reported at admission that she was having blood pressures in the 180s over 100s at home. She was diagnosed with preeclampsia earlier last week and received betamethasone 2 doses under the care of Dr. Dennis. On Tuesday she was monitored as an outpatient, lab work at that point was reassuring as well as ultrasound therefore she was discharged with bedrest. She return to care today once these symptoms worsened due to the precautions given to her at the discharge time. Initially an IV was started and lab work was repeated, however after giving several doses of IV labetalol as well as by mouth labetalol the patient shows no improvement in her blood pressures they were still spiking the 170s over 100s at that point undetermined starting magnesium sulfate for seizure prophylaxis and inducing the patient. Admission Nurse Assessment Rev: Yes History of Labs Laboratory Tests Test 08/20/17 18:00 08/20/17 19:00 Range/Units Urine Color YELLOW Urine Clarity CLEAR Urine pH 6 5-9 Urine Specific [place] 1.015 L 1.016-1.022 Urine Protein 4+ NEGATIVE Urine Glucose (UA) NEGATIVE NEGATIVE Urine Ketones NEGATIVE NEGATIVE Urine Nitrite NEGATIVE NEGATIVE Urine Bilirubin NEGATIVE NEGATIVE Urine Urobilinogen NORMAL NORMAL MG/DL Urine Leukocyte Esterase 1+ H NEGATIVE Urine RBC (Auto) 1+ H NEGATIVE Urine RBC NONE /HPF Urine WBC 5-10 H /HPF Urine Squamous Epithelial Cells 25-50 H /HPF Urine Crystals NONE /LPF Urine Bacteria TRACE /HPF Urine Casts NONE /LPF Urine Mucus NEGATIVE /LPF Urine Culture Indicated NO White Blood Count 13.1 H 4.3-11.0 10^3/uL Red Blood Count 3.91 L 4.35-5.85 10^6/uL Hemoglobin 11.5 11.5-16.0 G/DL Hematocrit 34 L 35-52 % Mean Corpuscular Volume 86 80-99 FL Mean Corpuscular Hemoglobin 29 25-34 PG Mean Corpuscular Hemoglobin Concent 34 32-36 G/DL Red Cell Distribution Width 12.1 10.0-14.5 % Platelet Count 151 130-400 10^3/uL Mean Platelet Volume 12.6 H 7.4-10.4 FL Neutrophils (%) (Auto) 71 42-75 % Lymphocytes (%) (Auto) 17 12-44 % Monocytes (%) (Auto) 12 0-12 % Eosinophils (%) (Auto) 0 0-10 % Basophils (%) (Auto) 0 0-10 % Neutrophils # (Auto) 9.3 H 1.8-7.8 X 10^3 Lymphocytes # (Auto) 2.3 1.0-4.0 X 10^3 Monocytes # (Auto) 1.5 H 0.0-1.0 X 10^3 Eosinophils # (Auto) 0.0 0.0-0.3 10^3/uL Basophils # (Auto) 0.0 0.0-0.1 10^3/uL Sodium Level 138 135-145 MMOL/L Potassium Level 3.8 3.6-5.0 MMOL/L Chloride Level 110 H 98-107 MMOL/L Carbon Dioxide Level 19 L 21-32 MMOL/L Anion Gap 9 5-14 MMOL/L Blood Urea Nitrogen 14 7-18 MG/DL Creatinine 0.64 0.60-1.30 MG/DL Estimat Glomerular Filtration Rate > 60 BUN/Creatinine Ratio 22 Glucose Level 77 70-105 MG/DL Uric Acid 7.5 H 2.6-7.2 MG/DL Calcium Level 7.9 L 8.5-10.1 MG/DL Total Bilirubin 0.2 0.1-1.0 MG/DL Aspartate Amino Transf (AST/SGOT) 21 5-34 U/L Alanine Aminotransferase (ALT/SGPT) 38 0-55 U/L Alkaline Phosphatase 109 40-136 U/L Total Protein 5.3 L 6.4-8.2 GM/DL Albumin 2.8 L 3.2-4.5 GM/DL O pos Antibody neg RI RPR NR HBsAg NR HIV NR GC neg GBS unknown Allergies and Home Medications Allergies Coded Allergies: No Known Drug Allergies (Unverified , 08/01/17) Home Medications Acetaminophen 325 Mg Tablet, 1-2 TAB PO Q6H, (Reported) Loratadine/Pseudoephedrine 1 Each Tab.er.12h, 1 EACH PO DAILY, (Reported) Vit No.124/Iron/FA 1 Each Tablet, 1 EACH PO DAILY, (Reported) OB - History Hx of Present Care: Yes Ultrasounds: Normal mid trimester US Obstetrical Complications: Pre-eclampsia Medical Complications: None Obstetrical History Hx : 22 Hx Para: 0 Hx Total # of Abortions (Spona: 1 Delivery History Hx Blood Disorders: No Adverse Rxn to Tranfusion: No Patient Past Medical History BMI > 30 Social History/Family History HIV/AIDS: No Recent Infectious Disease Expo: No Sexually Transmitted Disease: No Alcohol Use: Denies Use Recreational Drug Use: No Immunizations Date of Influenza Vaccine: Aug 05, 2017 OB - Admission Exam Physical Exam Vitals: Vital Signs 08/20/17 08/20/17 20:20 21:30 Temp 99.0 Pulse 73 Resp 18 B/P (MAP) 141/67 O2 Delivery Room Air HEENT: NCAT Heart: Rhythm Normal Lungs: Clear Abdomen: Gravid Extremities: Normal Reflexes: Normal Cervical Dilatation: 1cm Effacement: 75% Station: -1 Membranes: Intact Heart Rate: 130's Accelerations: Accelerations Present Decelerations: No Decelerations Short Term Variability: Present [facility] Variability: Average (6-25) Contractions on Admission: None Intensity: Mild Labs Laboratory Tests Test 08/20/17 18:00 08/20/17 19:00 Range/Units Urine Color YELLOW Urine Clarity CLEAR Urine pH 6 5-9 Urine Specific [place] 1.015 L 1.016-1.022 Urine Protein 4+ NEGATIVE Urine Glucose (UA) NEGATIVE NEGATIVE Urine Ketones NEGATIVE NEGATIVE Urine Nitrite NEGATIVE NEGATIVE Urine Bilirubin NEGATIVE NEGATIVE Urine Urobilinogen NORMAL NORMAL MG/DL Urine Leukocyte Esterase 1+ H NEGATIVE Urine RBC (Auto) 1+ H NEGATIVE Urine RBC NONE /HPF Urine WBC 5-10 H /HPF Urine Squamous Epithelial Cells 25-50 H /HPF Urine Crystals NONE /LPF Urine Bacteria TRACE /HPF Urine Casts NONE /LPF Urine Mucus NEGATIVE /LPF Urine Culture Indicated NO White Blood Count 13.1 H 4.3-11.0 10^3/uL Red Blood Count 3.91 L 4.35-5.85 10^6/uL Hemoglobin 11.5 11.5-16.0 G/DL Hematocrit 34 L 35-52 % Mean Corpuscular Volume 86 80-99 FL Mean Corpuscular Hemoglobin 29 25-34 PG Mean Corpuscular Hemoglobin Concent 34 32-36 G/DL Red Cell Distribution Width 12.1 10.0-14.5 % Platelet Count 151 130-400 10^3/uL Mean Platelet Volume 12.6 H 7.4-10.4 FL Neutrophils (%) (Auto) 71 42-75 % Lymphocytes (%) (Auto) 17 12-44 % Monocytes (%) (Auto) 12 0-12 % Eosinophils (%) (Auto) 0 0-10 % Basophils (%) (Auto) 0 0-10 % Neutrophils # (Auto) 9.3 H 1.8-7.8 X 10^3 Lymphocytes # (Auto) 2.3 1.0-4.0 X 10^3 Monocytes # (Auto) 1.5 H 0.0-1.0 X 10^3 Eosinophils # (Auto) 0.0 0.0-0.3 10^3/uL Basophils # (Auto) 0.0 0.0-0.1 10^3/uL Sodium Level 138 135-145 MMOL/L Potassium Level 3.8 3.6-5.0 MMOL/L Chloride Level 110 H 98-107 MMOL/L Carbon Dioxide Level 19 L 21-32 MMOL/L Anion Gap 9 5-14 MMOL/L Blood Urea Nitrogen 14 7-18 MG/DL Creatinine 0.64 0.60-1.30 MG/DL Estimat Glomerular Filtration Rate > 60 BUN/Creatinine Ratio 22 Glucose Level 77 70-105 MG/DL Uric Acid 7.5 H 2.6-7.2 MG/DL Calcium Level 7.9 L 8.5-10.1 MG/DL Total Bilirubin 0.2 0.1-1.0 MG/DL Aspartate Amino Transf (AST/SGOT) 21 5-34 U/L Alanine Aminotransferase (ALT/SGPT) 38 0-55 U/L Alkaline Phosphatase 109 40-136 U/L Total Protein 5.3 L 6.4-8.2 GM/DL Albumin 2.8 L 3.2-4.5 GM/DL OB - Assessment/Plan/Diagnosis Plan Plan: Induction Induction Method: per Misoprostol Protocol Other Plan Due to GBS unknown and patient's status IV ampicillin was started. Magnesium sulfate bolus of 6 g followed by 2 g an hour was started. Strict ins and outs as well as neuro checks were ordered. Discharge Diagnosis Diagnosis: 22-year-old at 34 weeks and 5 days gestation Severe preeclampsia- uncontrolled blood pressures Premature labor induction GBS unknown BMI greater than 30 FABIO LLANOS DO Aug 21, 2017 1:27 am
[2017-08-21] MEDS: MISOPROSTOL 100 MCG (CYTOTEC) TAB PO SCH ×2 (02:11→06:32)
[2017-08-21] MEDS: AMPICILLIN INJECTION 1,000 MG in NS (IVPB) 50 ML IV SCH ×2 (02:11→05:56)
[2017-08-21] MEDS: ONDANSETRON 4 MG/2 ML (SDV) Z0FRAN IVP PRN ×4 (02:11→16:10)
[2017-08-21] MEDS ORDERED: HYDROmorphone (DILAUDID) 2 MG/ML VIAL IVP ONE ×2 (03:45→05:45)
[2017-08-21] MEDS ORDERED: LABETALOL HCL 20 MG/4 ML VIAL IV ONE (04:45)
[2017-08-21] MEDS ORDERED: hydrALAZINE (APESOLINE) 20 MG/ML VIAL IV ONE ×2 (05:45→07:45)
[2017-08-21] MEDS: CATHETER FLUSH 10 ML SYR IV SCH ×2 (06:00→14:53)
[2017-08-21] MEDS: MAGNESIUM SULFATE DRIP 500 ML IV SCH ×2 (07:47→18:00)
[2017-08-21] MEDS ORDERED: LACTATED RINGERS 1,000 ML IV PRN (08:09)
[2017-08-21] MEDS ORDERED: CITRIC ACID/SOB CIT (BICITRA) 30 ML UDC PO ONE (08:15)
[2017-08-21] MEDS ORDERED: ceFAZolin 2 GM/50 ML NS 50 ML IV ONE (08:15)
[2017-08-21] MEDS ORDERED: FAMOTIDINE 20MG/2ML IV (PEPCID) IV ONE (08:15)
[2017-08-21] MEDS ORDERED: METOCLOPRAMIDE INJ 10 MG/2 ML (REGLAN) IV ONE (08:15)
--- NOTE | 2017-08-21 08:31 | Progress Note-Standard ---
Standard Progress Note Progress Notes/Assess & Plan Date Seen by Provider: Aug 21, 2017 Time Seen by Provider: 07:45 Progress/Assessment & Plan patient was evaluated after monitoring admission last night. When seen the patient last night blood pressures were relatively controlled initially on the magnesium sulfate infusion. However throughout the night secondary doses of IV labetalol had to be given both 20 mg and 40 mg IV without any response in blood pressure. Her blood pressures were began in the 180s over 110s, severe headache and vision changes was noted by the patient. This morning at approximately 630 she again reported severe headache, 5 mg of IV hydralazine was administered with a minor response and blood pressure for approximately 30 minutes before it came back up. 10 mg of IV hydralazine within given and I presented to the hospital to evaluate the patient further. This point she was noted to have +3 to +2 reflexes. She was noted to make no cervical change overnight, however the general overall appearance of the patient as well as her well-being is noted to be declined from admission. Due to remoteness from delivery and difficulty with controlling blood pressure was severe preeclampsia I discussed with patient . Risk of this procedure was discussed, however my bigger concern at this point was risk of maternal sequelae of elevated blood pressures if we do not proceed with delivery. I discussed with her likelihood of labor being a long course, and fighting the blood pressures this often and early would likely not give any better. after all that was discussed with the patient's and mother present and joint decision was made to proceed with delivery. After delivery we discussed 12-24 hours of IV magnesium sulfate infusion, as well as continued dosing of antihypertensives and close monitoring of input and output including a Mcgee catheter. She denies shouldn't understanding of this and was agreeable to proceed. FABIO LLANOS DO Aug 21, 2017 8:31 am
[2017-08-21] MEDS ORDERED: fentaNYL INJECTION 100 MCG/2 ML AMP ONE (08:41)
[2017-08-21] MEDS ORDERED: CARBOPROST (HEMABATE) 250 MCG/ML AMP IM ONE (08:43)
[2017-08-21] MEDS ORDERED: LABETALOL 200 MG (NORMODYNE) TAB PO SCH (09:00)
[2017-08-21] MEDS ORDERED: OXYTOCIN/NORMAL SALINE 1,000 ML IV ONE (09:43)
[2017-08-21] MEDS ORDERED: OXYTOCIN/NORMAL SALINE 500 ML IV SCH (09:56)
[2017-08-21] MEDS ORDERED: IBUPROFEN 600 MG (MOTRIN) TAB PO SCH (10:00)
[2017-08-21] MEDS ORDERED: TETANUS,DIPTH,PERTUSS P/F (BOOSTRIX) 0.5 ML VIAL IM SCH (10:00)
[2017-08-21] MEDS ORDERED: MEASLES,MUMPS,RUBELLA 1 EA INJ SC SCH (10:00)
--- NOTE | 2017-08-21 10:03 | Progress Note-Post Operative ---
Post-Operative Progess Note Surgeon (s)/Demand Equipment Repairer (s) Surgeon FABIO LLANOS DO Demand Equipment Repairer: [employer]ILLS Pre-Operative Diagnosis 34.6 week IUP, Severe PreE with uncontrolled BP, Remote from delivery Post-Operative Diagnosis Same+ Double nuchal cord Procedure & Operative Findings Date of Procedure 08/21/17 Procedure Performed/Findings PLTCS Anesthesia Type Spinal Estimated Blood Loss Estimated blood loss (mL): 600 Specimens/Packing Specimens Removed placenta FABIO LLANOS DO Aug 21, 2017 10:03
[2017-08-21] MEDS ORDERED: MEPERIDINE (DEMEROL) INJ 100 MG/ML ONE (10:17)
[2017-08-21] MEDS ORDERED: MEPERIDINE (DEMEROL) INJ 50 MG/ML ONE (10:20)
[2017-08-21] MEDS: MEPERIDINE (DEMEROL) INJ 50 MG/ML IVP PRN ×2 (10:25→10:30)
[2017-08-21] MEDS: KETOROLAC 30 MG/ML VIAL IVP SCH ×3 (11:38→23:09)
[2017-08-21] MEDS ORDERED: PROMETHAZINE INJ 25 MG/ML (PHENERGAN) AMP IVP PRN (11:45)
[2017-08-21] MEDS: HYDROmorphone (DILAUDID) 2 MG/ML VIAL IVP PRN ×3 (12:50→22:07)
[2017-08-21] MEDS: LABETALOL 200 MG (NORMODYNE) TAB PO SCH ×2 (12:50→20:41)
[2017-08-21] MEDS ORDERED: CATHETER FLUSH 10 ML SYR IV SCH (14:00)
[2017-08-21] MEDS: NS IV 1000 ML 1,000 ML IV SCH ×3 (14:53→16:57)
--- NOTE | 2017-08-21 15:03 | OPERATIVE REPORT ---
DATE OF SERVICE: PREOPERATIVE DIAGNOSES 1. A 22-year-old G2, P0 at 34 weeks and 6 days' gestation. 2. Severe preeclampsia with uncontrolled blood pressures despite IV antihypertensive. 3. Remote from delivery. POSTOPERATIVE DIAGNOSES 1. A 22-year-old G2, P0 at 34 weeks and 6 days' gestation. 2. Severe preeclampsia with uncontrolled blood pressures despite IV antihypertensive. 3. Remote from delivery. 4. Double nuchal cord. PROCEDURE: Primary low transverse section. SURGEON: Dr. Emiliano Llanos. ANESTHESIA: Spinal. EBL: 600 mL. URINE OUTPUT: 200 mL, clear at the procedure. FLUIDS: 1200 mL Lactated Ringer solution. FINDINGS: A live male weighing 5 pounds even with Apgars of 7 and 9. Grossly normal-appearing uterus, bilateral fallopian tubes and ovaries. INDICATIONS FOR PROCEDURE: This is a 22-year-old patient who was a patient of Dr. Dennis'romy who presented to the hospital on Tuesday afternoon with signs of preeclampsia, elevated blood pressures and concerns for possible worsening of this condition. She initially was found to be stable at that visit and was discharged home with severe preeclampsia precautions. She was readmitted yesterday afternoon with pressures in the 170s to 180s over 100 to 110. At that point, a decision was made to admit the patient and start her on magnesium for seizure prophylaxis and proceed with delivery as the patient had already received betamethasone x2 doses. Cytotec was started as my induction method; however, blood pressures became unstable throughout the evening elevating at times to 180s over 100s to 110s with a severe headache and vision changes. The patient was given multiple doses of IV labetalol and finally was able to get somewhat of some control of the blood pressures with IV hydralazine. However, due to ongoing worsening blood pressures despite IV antihypertensive, I discussed with the patient due to her remoteness to delivery and the worsening of her condition proceeding with section as this would be the cure for preeclampsia. Risk of the procedure was discussed with her and her family in detail as well as risk of upon herself if we continue down the course that we were going. We all agreed that was the necessary method to take and consent was obtained and the patient was then taken to the operating room. OPERATIVE REPORT DETAIL: Once in the operating room, spinal analgesia found to be adequate. She was placed in the supine position with leftward tilt, prepped and draped in normal sterile fashion with magnesium sulfate still running. Anesthesia was tested. A time out was performed. Once anesthesia was tested, I proceeded with making a Pfannenstiel skin incision with a knife and carried to underlying fascia using Bovie cautery. Fascial incision was extended laterally using Bovie cautery. Superior edge of fascial incision was then grasped with Falguni clamps, tented up and dissected off any rectus muscles. The inferior aspect the fascial incision was then grasped with Falguni clamps, tented up and dissected off any rectus muscles. Rectus muscles were then dissected in the midline using Roy scissors, which exposed the peritoneum which I entered bluntly and extended using blunt traction. An Kimo ring retractor was placed in the peritoneal incision and this offers excellent lateral sidewall retraction. I then identified the lower uterine segment, which was found to be thinned out and I made a low transverse incision to the vesicouterine peritoneum and bluntly dissected off the underlying myometrium. I did platysma myotomy using the knife until membranes were visualized, at which point, I extended uterine incision laterally and superiorly using the bandage scissors. Rupture of membranes was performed. Upon entry of my digit into the intrauterine cavity, clear fluid was noted at that time and the infant was found in vertex presentation. I elevated the infant's head up to the incision and using the fundal pressure, the infant's head was delivered to the incision. A tight nuchal cord was reduced x2. The anterior, posterior shoulder delivered. The is then brought to the operative field where the nares and oropharynx are bulb suctioned. The cord was duly clamped and cut and infant handed off to the waiting pediatric team. Cord blood was collected. Three-vessel cord with intact placenta was delivered spontaneously thereafter. IV Pitocin is initiated to facilitate uterine contraction. Fundus was firm with bimanual massage. The uterus was then exteriorized and cleared of all endometrial clots and debris. I then closed the uterine incision using 0 Vicryl suture in running locking fashion. Second layer at the imbricating 0 Monocryl was placed. Excellent hemostasis was noted after doing this. I then copiously irrigated the pelvis using normal saline. Once again, no active bleeding was noted from any of my dissection planes. I placed Interceed anti-adhesion material over my low transverse incision and placed the uterus back within the pelvis. I then proceeded to closing the peritoneum after removing the Kimo retractor using 3-0 Vicryl suture in a running fashion. The rectus muscle was reapproximated with 2-0 Vicryl suture in an interrupted fashion. The fascia was reapproximated with 0 Vicryl suture in running fashion. The subcutaneous tissue was reapproximated using 3 plain in an interrupted subcutaneous stitch and the skin was reapproximated using 4-0 Monocryl in a running subcuticular. Dermabond was applied to the incision and a sterile dressing with adhesive white tape. The patient tolerated the procedure well. Her blood pressures improved after spinal was administered down into the 130s to 120's over 80s to 90s. Lap and sponge count was correct at end of procedure, instrument counts correct as well. Two grams of Ancef given preoperatively for infection prophylaxis. Job ID: [id number] DocumentID: [id number] Dictated Date: 08/21/2017 10:10:13 Student Services Director Date: 08/21/2017 14:27:13 Dictated By: EMILIANO LLANOS DO
[2017-08-21] MEDS: DOCUSATE SODIUM 100 MG (COLACE) CAP PO SCH (20:41)
[2017-08-22] VITALS (16 sets, daily range): BP systolic 126–176; BP diastolic 74–96
[2017-08-22] MEDS: ONDANSETRON 4 MG/2 ML (SDV) Z0FRAN IVP PRN (00:38)
[2017-08-22] MEDS: CATHETER FLUSH 10 ML SYR IV SCH (02:29)
[2017-08-22] MEDS ORDERED: FUROSEMIDE 40 MG/4 ML INJ (LASIX) IVP ONE (03:15)
[2017-08-22 03:54] LABS: BASOPHILS % (AUTO) 0 % (0-10); EOSINOPHILS % (AUTO) 0 % (0-10); LYMPHOCYTES # (AUTO) 1.4 X 10^3 (1.0-4.0); LYMPHOCYTES % (AUTO) 9 % (12-44); MEAN CORPUSCULAR HEMOGLOBIN 29 PG (25-34); MEAN CORPUSCULAR HGB CONC 34 G/DL (32-36); MEAN CORPUSCULAR VOLUME 86 FL (80-99); MEAN PLATELET VOLUME 11.9 FL (7.4-10.4); MONOCYTES # (AUTO) 1.1 X 10^3 (0.0-1.0); MONOCYTES % (AUTO) 7 % (0-12); NEUTROPHILS # (AUTO) 12.8 X 10^3 (1.8-7.8); NEUTROPHILS % (AUTO) 84 % (42-75); PLATELET COUNT 137 10^3/uL (130-400); RED BLOOD COUNT 3.74 10^6/uL (4.35-5.85); RED CELL DISTRIBUTION WIDTH 12.5 % (10.0-14.5); WHITE BLOOD COUNT 15.3 10^3/uL (4.3-11.0)
[2017-08-22 04:14] LABS: ALANINE AMINOTRANSFERASE 24 U/L (0-55); ALBUMIN 2.4 GM/DL (3.2-4.5); ANION GAP 6 MMOL/L (5-14); ASPARTATE AMINO TRANSFERASE 20 U/L (5-34); BILIRUBIN,TOTAL 0.3 MG/DL (0.1-1.0); BLOOD UREA NITROGEN 10 MG/DL (7-18); BUN/CREATININE RATIO 16; CALCIUM 6.3 MG/DL (8.5-10.1); CARBON DIOXIDE 19 MMOL/L (21-32); CHLORIDE 105 MMOL/L (98-107); CREATININE SERUM 0.64 MG/DL (0.60-1.30); GFR ESTIMATED > 60; GLUCOSE 86 MG/DL (70-105); POTASSIUM 4.1 MMOL/L (3.6-5.0); SODIUM 130 MMOL/L (135-145); TOTAL PROTEIN 4.7 GM/DL (6.4-8.2)
[2017-08-22 04:19] LABS: MAGNESIUM 5.2 MG/DL (1.8-2.4)
[2017-08-22] MEDS: KETOROLAC 30 MG/ML VIAL IVP SCH (06:17)
[2017-08-22] MEDS: NS IV 1000 ML 1,000 ML IV SCH (06:17)
[2017-08-22] MEDS: LABETALOL 200 MG (NORMODYNE) TAB PO SCH ×3 (06:29→20:53)
--- NOTE | 2017-08-22 08:05 | Progress Note-Standard ---
Standard Progress Note Progress Notes/Assess & Plan Date Seen by Provider: Aug 22, 2017 Time Seen by Provider: 07:45 Progress/Assessment & Plan Patient is feeling much better today after MgSO4 infusion was stopped at 0345 this morning. Pain is well controlled. IS utilized. Kahn in place and IV still running. Vital Sign - Last 24 Hours 08/21/17 08/21/17 08/21/17 08/21/17 08:03 08:08 08:15 08:18 Pulse 86 86 80 77 Resp 18 18 18 18 B/P (MAP) 153/92 163/99 150/88 148/88 O2 Delivery Room Air Room Air Room Air Room Air 08/21/17 08/21/17 08/21/17 08/21/17 08:23 08:30 08:45 11:02 Temp 97.1 97.8 Pulse 86 86 81 75 Resp 18 18 18 18 B/P (MAP) 153/96 167/94 142/81 151/89 Pulse Ox 100 O2 Delivery Room Air Room Air Room Air Room Air 08/21/17 08/21/17 08/21/17 08/21/17 11:41 12:00 12:42 13:00 Temp 98.0 98.8 97.9 Pulse 79 90 87 80 Resp 18 18 18 18 B/P (MAP) 150/90 153/92 159/106 137/86 Pulse Ox 100 100 99 97 O2 Delivery Room Air Room Air Room Air Room Air 08/21/17 08/21/17 08/21/17 08/21/17 15:00 16:00 16:52 17:00 Temp 98.3 98.6 98.6 98.2 Pulse 84 88 84 79 Resp 18 18 18 18 B/P (MAP) 141/72 140/79 149/90 133/80 Pulse Ox 98 97 93 96 O2 Delivery Room Air Room Air Room Air Room Air 08/21/17 08/21/17 08/21/17 08/21/17 18:00 19:00 20:00 21:00 Temp 98.2 97.6 98.1 98.0 Pulse 75 75 84 78 Resp 18 18 18 18 B/P (MAP) 159/95 142/91 165/103 157/95 Pulse Ox 96 95 96 97 O2 Delivery Room Air Room Air Room Air Room Air 10/22/17 10/22/17 10/23/17 10/23/17 22:00 23:00 00:00 00:20 Temp 98.3 98.0 97.2 Pulse 87 79 82 78 Resp 18 18 18 18 B/P (MAP) 158/90 156/90 163/96 144/89 Pulse Ox 95 96 95 95 O2 Delivery Room Air Room Air Room Air Room Air 08/22/17 08/22/17 08/22/17 01:00 02:00 06:17 Temp 98.2 98.6 100.9 Pulse 87 78 94 Resp 18 18 18 B/P (MAP) 139/87 147/94 176/96 Pulse Ox 97 93 95 O2 Delivery Room Air Room Air Room Air Incision: c/d/i Lungs CTAB Ext: +1 edema, +2/4 reflexes Laboratory Tests Test 08/22/17 03:45 Range/Units White Blood Count 15.3 H 4.3-11.0 10^3/uL Red Blood Count 3.74 L 4.35-5.85 10^6/uL Hemoglobin 11.0 L 11.5-16.0 G/DL Hematocrit 32 L 35-52 % Mean Corpuscular Volume 86 80-99 FL Mean Corpuscular Hemoglobin 29 25-34 PG Mean Corpuscular Hemoglobin Concent 34 32-36 G/DL Red Cell Distribution Width 12.5 10.0-14.5 % Platelet Count 137 130-400 10^3/uL Mean Platelet Volume 11.9 H 7.4-10.4 FL Neutrophils (%) (Auto) 84 H 42-75 % Lymphocytes (%) (Auto) 9 L 12-44 % Monocytes (%) (Auto) 7 0-12 % Eosinophils (%) (Auto) 0 0-10 % Basophils (%) (Auto) 0 0-10 % Neutrophils # (Auto) 12.8 H 1.8-7.8 X 10^3 Lymphocytes # (Auto) 1.4 1.0-4.0 X 10^3 Monocytes # (Auto) 1.1 H 0.0-1.0 X 10^3 Eosinophils # (Auto) 0.0 0.0-0.3 10^3/uL Basophils # (Auto) 0.0 0.0-0.1 10^3/uL Sodium Level 130 L 135-145 MMOL/L Potassium Level 4.1 3.6-5.0 MMOL/L Chloride Level 105 98-107 MMOL/L Carbon Dioxide Level 19 L 21-32 MMOL/L Anion Gap 6 5-14 MMOL/L Blood Urea Nitrogen 10 7-18 MG/DL Creatinine 0.64 0.60-1.30 MG/DL Estimat Glomerular Filtration Rate > 60 BUN/Creatinine Ratio 16 Glucose Level 86 70-105 MG/DL Calcium Level 6.3 L 8.5-10.1 MG/DL Magnesium Level 5.2 *H 1.8-2.4 MG/DL Total Bilirubin 0.3 0.1-1.0 MG/DL Aspartate Amino Transf (AST/SGOT) 20 5-34 U/L Alanine Aminotransferase (ALT/SGPT) 24 0-55 U/L Alkaline Phosphatase 88 40-136 U/L Total Protein 4.7 L 6.4-8.2 GM/DL Albumin 2.4 L 3.2-4.5 GM/DL Diagnosis: POD 1 PLTCS Severe PreE- BP still labile control BMI > 35 P: Saline lock IV DC kahn but continue strict I and Os Progress to regular diet Attempting conversion to PO analgesia Encourage ambulation and IS use Continue PO care, and PreE precautions FABIO LLANOS DO Aug 22, 2017 8:05 am
[2017-08-22] MEDS: DOCUSATE SODIUM 100 MG (COLACE) CAP PO SCH ×2 (08:38→20:52)
[2017-08-22] MEDS: HYDROcodone/APAP 5 MG/325 MG (LORTAB) TAB PO PRN ×4 (08:38→22:35)
[2017-08-22] MEDS: IBUPROFEN 600 MG (MOTRIN) TAB PO SCH ×3 (13:17→23:31)
--- NOTE | 2017-08-22 13:53 | Anesthesia-Regional Post-Op ---
Regional Patient Condition Mental Status: Alert, Oriented x3 Circulation: Same as Pre-Op Headache: Absent Sensation: Full Recovery Motor Block: Absent Post Op Complications Complications None Follow Up Care/Instructions Patient Instructions None needed. Anesthesia/Patient Condition Patient is doing well, no complaints, stable vital signs, no apparent adverse anesthesia problems. No complications reported per nursing. CONCEPCIÓN GUY CRNA Aug 22, 2017 13:53
[2017-08-22] MEDS ORDERED: FUROSEMIDE 40 MG/4 ML INJ (LASIX) IVP NR (16:45)
[2017-08-23 05:00] VITALS: BP 155/105
[2017-08-23] MEDS: LABETALOL 200 MG (NORMODYNE) TAB PO SCH ×2 (05:02→13:05)
[2017-08-23] MEDS: HYDROcodone/APAP 5 MG/325 MG (LORTAB) TAB PO PRN ×2 (05:03→12:37)
[2017-08-23] MEDS: IBUPROFEN 600 MG (MOTRIN) TAB PO SCH (06:15)
[2017-08-23] MEDS ORDERED: amLODIPine 5 MG (NORVASC) TAB ONE (08:16)
--- NOTE | 2017-08-23 08:19 | Postpartum Progress Note ---
Note Note Day # 2 s/p LTCS severe preeclampsia Subjective: Patient is without complaints. Ambulating, voiding. Tolerating a regular diet without nausea or vomiting. Normal lochia. Pain is well controlled with oral pain medications. baby transferred to NICU. maxed out on labetalol (300 mg po bid) and still with elevated blood pressures Objective: Vital Sign - Last 12Hours 08/22/17 08/22/17 08/23/17 20:52 23:31 05:00 Temp 98.4 98.7 99.4 Pulse 88 88 90 Resp 18 18 18 B/P (MAP) 153/88 126/74 155/105 Pulse Ox 98 97 97 O2 Delivery Room Air Room Air Room Air Intake and Output 08/24/17 00:00 Intake Total 1250 ml Output Total 2450 ml Balance -1200 ml Intake Oral 1250 ml Output Urine Total 2450 ml Physical Exam: General - Alert and oriented, no apparent distress Abdomen - Soft, appropriately tender to palpation, non-distended, fundus firm at umbilicus Extremities - 2+ edema, negative Tricia's bilaterally Inc - CDI Assessment: 1. post- day # 2, status Primary low transverse section. Recovering well, hemodynamically stable 2. Severe preeclampsia - slow recovery Plan: Routine care. Encourage breast feeding. Encourage ambulation. Ferrous sulfate supplementation. start Norvasc. give additional lasix hold nsaid Plan DC home Vitals - Labs Vital Signs - I&O Vital Signs Date Time Temp Pulse Resp B/P (MAP) Pulse Ox O2 Delivery O2 Flow Rate FiO2 08/23/17 05:00 99.4 90 18 155/105 97 Room Air 08/22/17 23:31 98.7 88 18 126/74 97 Room Air 08/22/17 20:52 98.4 88 18 153/88 98 Room Air 08/22/17 16:00 99.8 89 18 143/85 97 Room Air 08/22/17 13:05 97.5 97 18 148/80 97 Room Air 08/22/17 13:00 131/91 08/22/17 11:00 98.5 88 18 144/83 97 Room Air 08/22/17 08:30 100.3 90 18 147/87 97 Room Air MANUEL AVERY DO Aug 23, 2017 08:19
[2017-08-23 08:29] VITALS: BP 152/92
[2017-08-23] MEDS: DOCUSATE SODIUM 100 MG (COLACE) CAP PO SCH (08:36)
[2017-08-23] MEDS: amLODIPine 10 MG (NORVASC) TAB PO SCH (08:39)
[2017-08-23] MEDS: CATHETER FLUSH 10 ML SYR IV SCH (08:39)
[2017-08-23] MEDS ORDERED: FUROSEMIDE 20 MG (LASIX) TAB PO SCH (09:00)
[2017-08-23] MEDS ORDERED: amLODIPine 10 MG (NORVASC) TAB PO SCH (09:00)
[2017-08-23 10:29] VITALS: BP 136/87
[2017-08-23] MEDS ORDERED: AMLO10TA2 PO ×2 (11:33)
[2017-08-23] MEDS ORDERED: LABE200T3 PO ×2 (11:33)
[2017-08-23] MEDS ORDERED: IBUP-1773 PO ×2 (11:33)
[2017-08-23] MEDS ORDERED: DOCU100C37 PO ×2 (11:33)
[2017-08-23] MEDS ORDERED: HYDR-3812 PO ×2 (11:33)
--- NOTE | 2017-08-23 11:35 | Discharge Inst-Women's Service ---
Discharge Inst-Women's Serv Depart Medication/Instructions New, Converted or Re-Newed RX: RX on Chart Final Diagnosis severe preeclampsia primary section delivery Consults/Follow Up Additional Follow Up: Yes (1 week and 6 weeks) Activity Activity: Activity as Tolerated (no lifting over 25 lbs) Driving Instructions: No Driving for 1 Week NO SMOKING: NO SMOKING Nothing Inside Vagina: No Douching, No [place], No Tampons Diet Discharge Diet: No Restrictions Symptoms to Report to : Swelling Increased, Bleeding Excessive, Eyesight Changes, Pain Increased, Constipation(Persistant), Fever Over 101 Degrees F, Pain/Pressure in Jaw, Vaginal Bleeding Increase, Cramps in Feet or Legs, Lightheadedness, Vaginal Discharge Foul, Dizziness/Fainting, Nausea/Vomiting, Shortness of Breath, Weight Gain Over 2 Pounds For Any Problems or Questions: Contact Your Physician Skin/Wound Care Infection Signs and Symptoms: Increased Redness, Foul Odor of Wound, Increased Drainage, Skin Itchy or Has a Rash, Increased Swelling, Temperature Above 101 F Operative Area Clean and Dry: Keep Incision Clean/Dry Stitches/Rosaline/Dermabond: Dermabond Bathing Instructions: MANUEL Gunn DO Aug 23, 2017 11:35
[2017-08-23] MEDS ORDERED: IBUPROFEN 600 MG (MOTRIN) TAB PO ONE (12:25)
== END 2017-08-23 13:10 | disposition home or self-care (01) | DRG 766 ==
LOC: WSo 18:05 → LDRP 18:05 → WSo 18:25 → LDRP 18:25 → OBSVTOIN 20:56 → LDRP 20:56
PROVIDERS: ADMIT Obstetrics & Gynecology; ATTEND Obstetrics & Gynecology
PROC: 3E0P7GC Introduction of Other Therapeutic Substance into Female Reproductive, Via Natural or Artificial Opening (ICD-10-PCS; 2017-08-20)
PROC: 10D00Z1 Extraction of Products of Conception, Low, Open Approach (ICD-10-PCS; principal; 2017-08-21 08:52)
DX: O14.14 Severe pre-eclampsia complicating childbirth (principal); O69.81X0 Labor and delivery complicated by cord around neck, without compression, not applicable or unspecified; Z3A.34 34 weeks gestation of pregnancy; Z37.0 Single live birth
CPT/HCPCS: 36415; 80053; 81000; 83735; 84550; 85025; 86850; 86900; 86901; 94664; 99212

== ENCOUNTER → 2018-07-14 | Outpatient (CLI) | payer BC, MEDICAID ==
[~2018-07-14] MED LIST changes: +ACET325T38 PO; +ACHD5005 PO; +AMLO10TA6 PO; +CATHETER FLUSH 10 ML SYR IV PRN; +DOCU100C37 PO; -HYDR-3812 PO; +LABE200T7 PO
--- NOTE | 2018-07-14 12:45 | Diagnostic Imaging Report ---
INDICATION: Nausea and postprandial pain. DESCRIPTION OF PROCEDURE: Patient was administered 5.3 mCi technetium 99m Choletec intravenously and imaging of the abdomen was performed. At 60 minutes, patient ingested one can of Ensure and gallbladder ejection fraction was calculated. There is homogeneous uptake of activity by the liver with prompt excretion of activity into the gallbladder and common duct. Normal passage of activity into the small bowel is seen. Gallbladder ejection fraction is normal at 41%. IMPRESSION: Normal HIDA scan and gallbladder ejection fraction. Dictated by: Dictated on workstation # [id number]
== END ==
LOC: CARD 09:57
PROVIDERS: ATTEND Surgery
DX: R11.0 Nausea (principal)
CPT/HCPCS: 78227

== ENCOUNTER → 2019-05-07 | Outpatient (CLI) | payer BC, MEDICAID ==
[~2019-05-07] MED LIST changes: -AMLO10TA6 PO; +AMLO10TA7 PO; -CATHETER FLUSH 10 ML SYR IV PRN
--- NOTE | 2019-05-07 11:19 | Diagnostic Imaging Report ---
PROCEDURE: US Non-ob pelvis comp/trans. TECHNIQUE: Multiple realtime grayscale images were obtained of the pelvis in various projections endovaginally. Transabdominal imaging was also performed. INDICATION: Female infertility. FINDINGS: Uterus measures 7.0 x 4.4 x 3.7 cm. No myometrial mass is seen. Endometrium is 8 mm in thickness. Left ovary was obscured by bowel gas. Right ovary measures 4.1 x 2.8 x 2.8 cm. There is a 15 mm right ovarian cyst. Right ovary does show blood flow. Minimal free fluid in the posterior cul-de-sac is noted. IMPRESSION: 1. 15 mm right ovarian cyst. Left ovary was obscured. Study is otherwise unremarkable. Dictated by: Dictated on workstation # [id number]
== END ==
LOC: RAD 10:05
PROVIDERS: ATTEND Nurse Practitioner
DX: N83.201 Unspecified ovarian cyst, right side (principal); N97.9 Female infertility, unspecified
CPT/HCPCS: 76830; 76856

== ENCOUNTER 2019-09-09 16:03 | Emergency (ER) | payer BC, MEDICAID ==
[~2019-09-09] VITALS: Ht 167 cm; Wt 100.0 kg
[2019-09-09] MEDS ORDERED: oxyCODONE/APAP 5/325MG (PERCOCET 5) TABLET PO ONE (16:30)
[2019-09-09] MEDS ORDERED: cloNIDine 0.1 MG (CATAPRES) TAB PO ONE (16:30)
--- NOTE | 2019-09-09 16:35 | ED General ---
General Chief Complaint: Psych/Social Disorder Stated Complaint: BI LAT LEG PAIN, AND RESTLESS LEGS Nursing Triage Note: THE PT IS AMBULATORY TO THE ROOM WITHOUT DIFFICULTY. NO DISTRESS IS SEEN ON ARRIVAL. LOC IS NORMAL FOR THE PT. THE PT STATES THAT SHE HAS RAN OUT OF HER MEDICATION. SHE IS VERY ANXIOUS. Nursing Sepsis Screen: No Definite Risk Source of Information: Patient Exam Limitations: No Limitations History of Present Illness Date Seen by Provider: Sep 09, 2019 Time Seen by Provider: 16:32 Initial Comments To ER accompanied by [id number] and with reports of restless legs. She's been walking for about 45 minutes at home with inability to sit still. She was formerly on oxycodone/acetaminophen 7.5 mg 3 times a day for 3 months for neck pain/fibromyalgia. 6 days ago her prescription ran out. She called her primary care office who gave a three-day prescription for more, she was taking one half tablet twice a day for the past 2 days but has had very bothersome restless legs in general restlessness. She was started on Vistaril propranolol and alprazolam, these medications are not helping. Timing/Duration: 2-3 Days Severity: Moderate Allergies and Home Medications Allergies Coded Allergies: No Known Drug Allergies (Unverified , 08/01/17) Home Medications Amlodipine Besylate 10 Mg Tablet, 10 MG PO DAILY Prescribed by: MANUEL AVERY on 08/23/17 1133 Clonidine HCl 0.1 Mg Tablet, 0.1 MG PO BID Prescribed by: SEDRICK BOGGS on 09/09/19 1729 Docusate Sodium 100 Mg Capsule, 100 MG PO BID Prescribed by: MANUEL AVERY on 08/23/17 1133 Hydrocodone Bit/Acetaminophen 1 Each Tablet, 1-2 TAB PO Q4H PRN for PAIN- MODERATE Prescribed by: MANUEL AVERY on 08/23/17 1133 Ibuprofen 600 Mg Tablet, 600 MG PO Q6H Prescribed by: MANUEL AVERY on 08/23/17 1133 Labetalol HCl 200 Mg Tablet, 300 MG PO Q8HR Prescribed by: MANUEL AVERY on 08/23/17 1133 Vit No.124/Iron/FA 1 Each Tablet, 1 EACH PO DAILY, (Reported) Patient Home Medication List Home Medication List Reviewed: Yes Review of Systems Review of Systems Constitutional: see HPI EENTM: see HPI Respiratory: no symptoms reported Cardiovascular: no symptoms reported Genitourinary: no symptoms reported Musculoskeletal: no symptoms reported Skin: no symptoms reported Psychiatric/Neurological: No Symptoms Reported Hematologic/Lymphatic: No Symptoms Reported Past [id number]-Hygyvd-Pqokly Hx Patient Social History Recent Foreign Travel: No Contact w/Someone Who Travel: No Recent Infectious Disease Expo: No Recent Hopitalizations: No Physical Abuse: No Sexual Abuse: No Mistreated: No Fear: No Immunizations Up To Date Date of Influenza Vaccine: Aug 05, 2017 Seasonal Allergies Seasonal Allergies: Yes Past Medical History Surgeries: Yes Tonsillectomy Respiratory: No Cardiac: No Neurological: No Reproductive Disorders: No Female Reproductive Disorders: Denies Sexually Transmitted Disease: No HIV/AIDS: No Genitourinary: No Gastrointestinal: No Musculoskeletal: No Endocrine: No HEENT: No Cancer: No Psychosocial: No Integumentary: No Blood Disorders: No Adverse Reaction/Blood Tranf: No Family Medical History No Pertinent Family Hx Physical Exam Vital Signs Vital Signs - First Documented 09/09/19 16:19 Temp 36.4 Pulse 139 Resp 16 B/P (MAP) 150/100 (117) Capillary Refill : Less Than 3 Seconds Height, Weight, BMI Height: 5'9.00" Weight: 244lbs. 0.0oz. [id number]; 35.00 BMI Method:Actual General Appearance: No Apparent Distress, WD/WN, Anxious Eyes: Bilateral Eye Normal Inspection, Bilateral Eye PERRL, Bilateral Eye EOMI HEENT: PERRL/EOMI, TMs Normal Neck: Full Range of Motion, Normal Inspection Respiratory: No Accessory Muscle Use, No Respiratory Distress Cardiovascular: Regular Rate, Rhythm, Normal Peripheral Pulses Extremity: Normal Capillary Refill, Normal Inspection, Other (constant movement of lower extremities) Neurologic/Psychiatric: Alert, Oriented x3 Skin: Normal Color, Warm/Dry Progress/Results/Core Measures Suspected Sepsis Recent Fever Within 48 Hours: No Infection Criteria Present: None New/Unexplained Altered Menta: No Sepsis Screen: No Definite Risk SIRS Temperature: Pulse: 139 Respiratory Rate: 16 Blood Pressure 150 /100 Mean: 117 Results/Orders My Orders Orders - SEDRICK BOGGS APRN Oxycodone/Apap 5/325mg Tablet (Percocet (09/09/19 16:30) Clonidine Tablet (Catapres Tablet) (09/09/19 16:30) Alprazolam Tablet (Xanax Tablet) (09/09/19 17:00) Medications Given in ED Current Medications Medications Dose Ordered Sig/Deny Route Start Time Stop Time Status Last Admin Dose Admin Clonidine HCl 0.2 mg ONCE ONCE PO 09/09/19 16:30 09/09/19 16:31 DC 09/09/19 16:34 0.2 MG Vital Signs/I&O 09/09/19 16:19 Temp 36.4 Pulse 139 Resp 16 B/P (MAP) 150/100 (117) Capillary Refill : Less Than 3 Seconds Blood Pressure Mean: 117 POS Departure Communication (Admissions) Advise she is "done with that shit" when referring to Percocet, does not want any more of it, just wants to have restless legs stop. 1730-states she's feeling better at this time. Impression Primary Impression: Opioid withdrawal Disposition: HOME, SELF-CARE Condition: Stable Departure-Patient Inst. Decision time for Depature: 17:28 Referrals: LEYDI JOHNSON MD (PCP/Family) Primary Care Physician Patient Instructions: NO INSTRUCTIONS GIVEN Add. Discharge Instructions: 1. Medication as directed 2. Call Dr. Johnson tomorrow to make an appointment to be seen. Return to ER for any worsening. All discharge instructions reviewed with patient and/or family. Voiced understanding. Scripts Clonidine HCl (Clonidine HCl) 0.1 Mg Tablet 0.1 MG PO BID, #10 TAB Prov: SEDRICK BOGGS APRN 09/09/19 SEDRICK BOGGS APRN Sep 09, 2019 16:35 POS
[2019-09-09] MEDS ORDERED: ALPRAZolam 0.5 MG (XANAX) TAB PO SCH (17:00)
[2019-09-09] MEDS ORDERED: CLON0.1T PO (17:29)
[2019-09-09 17:41] VITALS: BP 140/80
== END 2019-09-09 17:38 | disposition home or self-care (01) ==
LOC: EDUNIT# 16:03 → ER 16:05
DX: F11.23 Opioid dependence with withdrawal (principal); Z90.89 Acquired absence of other organs
CPT/HCPCS: 99283

== ENCOUNTER → 2020-07-03 | Outpatient (CLI) | payer BC ==
[~2020-07-03] MED LIST changes: +CLON0.1T PO
--- NOTE | 2020-07-03 17:48 | Diagnostic Imaging Report ---
INDICATION: Dyspnea. EXAMINATION: PA and lateral chest at 4:23 p.m. COMPARISON: There is no prior study available for comparison. FINDINGS: The heart size is within normal limits. The lungs are clear. There is no evidence for failure, pneumonia or for a pleural effusion. The mediastinum is not widened. The osseous structures are intact. IMPRESSION: There is no evidence for active disease. Dictated by: Dictated on workstation # [id number]
== END ==
LOC: RAD 16:17
DX: R06.09 Other forms of dyspnea (principal)
CPT/HCPCS: 71046

== ENCOUNTER 2020-12-03 22:45 | Emergency (ER) | payer BC, OTHER ==
[~2020-12-03] VITALS: Ht 175 cm; Wt 100.0 kg
[~2020-12-03 22:45] MED LIST changes: +AMLO-251 PO; -AMLO10TA7 PO; +CLN.1T PO; -CLON0.1T PO
[2020-12-03 23:34] LABS: BILIRUBIN,URINE NEGATIVE (NEGATIVE); CLARITY,URINE CLEAR; COLOR,URINE YELLOW; GLUCOSE, URINE (UA) NEGATIVE (NEGATIVE); KETONES,URINE NEGATIVE (NEGATIVE); LEUKOCYTE ESTERASE ,URINE NEGATIVE (NEGATIVE); NITRITE,URINE NEGATIVE (NEGATIVE); PH,URINE 6.5 (5-9); PROTEIN,URINE NEGATIVE (NEGATIVE)
[2020-12-03 23:41] LABS: BACTERIA,URINE TRACE /HPF
[2020-12-03] MEDS ORDERED: KETOROLAC 30 MG/ML VIAL IVP ONE (23:45)
[2020-12-03] MEDS ORDERED: PROMETHAZINE INJ 25 MG/ML (PHENERGAN) AMP IVP ONE (23:45)
[2020-12-03] MEDS ORDERED: LACTATED RINGERS 1,000 ML IV ONE (23:45)
[2020-12-03 23:48] LABS: BASOPHILS % (AUTO) 0 % (0-10); EOSINOPHILS % (AUTO) 0 % (0-10); HEMATOCRIT 44 % (35-52); HEMOGLOBIN 14.3 g/dL (11.5-16.0); LYMPHOCYTES # (AUTO) 3.4 10^3/uL (1.0-4.0); LYMPHOCYTES % (AUTO) 34 % (12-44); MEAN CORPUSCULAR HEMOGLOBIN 28 pg (25-34); MEAN CORPUSCULAR HGB CONC 33 g/dL (32-36); MEAN CORPUSCULAR VOLUME 86 fL (80-99); MEAN PLATELET VOLUME 9.7 fL (9.0-12.2); MONOCYTES # (AUTO) 0.7 10^3/uL (0.0-1.0); MONOCYTES % (AUTO) 7 % (0-12); NEUTROPHILS # (AUTO) 5.8 10^3/uL (1.8-7.8); NEUTROPHILS % (AUTO) 59 % (42-75); PLATELET COUNT 331 10^3/uL (130-400); WHITE BLOOD COUNT 9.9 10^3/uL (4.3-11.0)
--- NOTE | 2020-12-03 23:52 | ED Headache ---
General Chief Complaint: Head/Cervical Problems Stated Complaint: COVID + 30 DAYS AGO/SEVERE HEADACHE SINCE Source: patient Exam Limitations: no limitations History of Present Illness Date Seen by Provider: Dec 03, 2020 Time Seen by Provider: 23:27 Initial Comments Patient presents ER by private conveyance with chief complaint of headache going on for 7 weeks. She went to [facility]'s her primary care doctor and they were too busy to get into so she went to urgent care who put her on Bactrim. She was being treated for a possible sinus infection. It did not get better after a week so she went back and was told she had COVID-19 and put on clarithromycin for possible sinus infection. She took this antibiotic completely and it did not get better so she went back and was put on a Medrol Dosepak which she completed. Her pain is keeping her from sleeping it is across to her face constant presently about a 6 out of 10, nonthrobbing. She does have a history of about 10 migraine headaches in her life but not like this. She is also noticed in the past few months she is had problems feeling wobbly on her feet and when she was driving today she felt like she should not be driving because she felt uncomfortable with her discoordination. She has a aunt who had a history of too much fluid on her brain and had to have a shunt placed. She does have a history of fibromyalgia. She has been treating her pain with Tylenol 1000 mg twice a day. She has not been taking NSAIDs. She says Excedrin makes her stomach upset. She is not having weakness or falls just feels like she might. In addition to her Zyrtec which she is already on chronically she started Singulair the same time she did the second dose of antibiotics and has noticed no benefit from any of these medications. The patient has been to her patient service specialist within the past few weeks and had no problems on her examination. Allergies and Home Medications Allergies Coded Allergies: No Known Drug Allergies (Unverified , 08/01/17) Home Medications Amlodipine Besylate 10 Mg Tablet, 10 MG PO DAILY Prescribed by: MANUEL AVERY on 08/23/17 1133 Clonidine HCl 0.1 Mg Tablet, 0.1 MG PO BID Prescribed by: SEDRICK BOGGS on 09/09/19 1729 Docusate Sodium 100 Mg Capsule, 100 MG PO BID Prescribed by: MANUEL AVERY on 08/23/17 1133 Hydrocodone Bit/Acetaminophen 1 Each Tablet, 1-2 TAB PO Q4H PRN for PAIN- MODERATE Prescribed by: MANUEL AVERY on 08/23/17 113 Ibuprofen 600 Mg Tablet, 600 MG PO Q6H Prescribed by: MANUEL AVERY on 08/23/17 113 Labetalol HCl 200 Mg Tablet, 300 MG PO Q8HR Prescribed by: MANUEL AVERY on 08/23/17 1133 Vit No.124/Iron/FA 1 Each Tablet, 1 EACH PO DAILY, (Reported) Patient Home Medication List Home Medication List Reviewed: Yes Review of Systems Review of Systems Constitutional: No chills, No diaphoresis Eyes: Denies Blindness, Denies Blurred Vision, Denies Drainage Ears, Nose, Mouth, Throat: denies ear pain, denies ear discharge Respiratory: No cough, No phlegm, No short of breath Cardiovascular: No chest pain, No palpitations Gastrointestinal: No abdominal pain, No nausea, No vomiting Genitourinary: No discharge, No dysuria : No Musculoskeletal: No back pain, No joint pain Skin: No pruritus, No rash All Other Systems Reviewed Negative Unless Noted: Yes Past Ympnftv-Jiawnh-Qgohoc Hx Patient Social History Alcohol Use: Denies Use Smoking Status: Never a Smoker Recent Hopitalizations: No Immunizations Up To Date Tetanus Booster (TDap): Less than 5yrs PED Vaccines UTD: Yes Date of Influenza Vaccine: Aug 05, 2017 Seasonal Allergies Seasonal Allergies: Yes Past Medical History Surgeries: No Tonsillectomy Respiratory: No Cardiac: Yes (STATES TAKES METOPROLOL FOR "HEART RATE") Neurological: Yes Headaches /Migraines Reproductive Disorders: No Female Reproductive Disorders: Denies Sexually Transmitted Disease: No HIV/AIDS: No Genitourinary: No Gastrointestinal: Yes Gastroesophageal Reflux Musculoskeletal: Yes Fibromyalgia Endocrine: No HEENT: No Cancer: No Psychosocial: Yes Bipolar Integumentary: No Blood Disorders: No Adverse Reaction/Blood Tranf: No Family Medical History No Pertinent Family Hx Physical Exam Vital Signs Vital Signs - First Documented 12/03/20 23:00 Temp 37.1 Pulse 106 Resp 18 B/P (MAP) 133/92 (106) Pulse Ox 99 Capillary Refill : Height, Weight, BMI Height: 5'9.00" Weight: 244lbs. 0.0oz. 110.578561sl; 35.00 BMI Method:Actual General Appearance: WD/WN, mild distress HEENT: PERRL/EOMI, normal ENT inspection, TMs normal, pharynx normal Neck: full range of motion, supple, normal inspection, lymphadenopathy (R), lymphadenopathy (L) (Bilateral faint anterior cervical shotty lymphadenopathy.) Cardiovascular: normal peripheral pulses, regular rate, rhythm, no edema Respiratory: lungs clear, normal breath sounds, no respiratory distress, no accessory muscle use Gastrointestinal: normal bowel sounds, non tender, soft Psychiatric: alert, oriented x 3 Crainal Nerves: normal hearing, normal speech, PERRL Coordination/Gait: normal finger to nose, normal gait Motor/Sensory: no motor deficit, no sensory deficit Reflexes: 1+ Bicep (R), 1+ Bicep (L); 2+ Knee (R), 2+ Knee (L) Skin: normal color, warm/dry Progress/Results/Core Measures Results/Orders Lab Results Laboratory Tests Test 12/03/20 23:24 12/03/20 23:27 Range/Units White Blood Count 9.9 4.3-11.0 10^3/uL Red Blood Count 5.10 3.80-5.11 10^6/uL Hemoglobin 14.3 11.5-16.0 g/dL Hematocrit 44 35-52 % Mean Corpuscular Volume 86 80-99 fL Mean Corpuscular Hemoglobin 28 25-34 pg Mean Corpuscular Hemoglobin Concent 33 32-36 g/dL Red Cell Distribution Width 12.0 10.0-14.5 % Platelet Count 331 130-400 10^3/uL Mean Platelet Volume 9.7 9.0-12.2 fL Immature Granulocyte % (Auto) 0 % Neutrophils (%) (Auto) 59 42-75 % Lymphocytes (%) (Auto) 34 12-44 % Monocytes (%) (Auto) 7 0-12 % Eosinophils (%) (Auto) 0 0-10 % Basophils (%) (Auto) 0 0-10 % Neutrophils # (Auto) 5.8 1.8-7.8 10^3/uL Lymphocytes # (Auto) 3.4 1.0-4.0 10^3/uL Monocytes # (Auto) 0.7 0.0-1.0 10^3/uL Eosinophils # (Auto) 0.0 0.0-0.3 10^3/uL Basophils # (Auto) 0.0 0.0-0.1 10^3/uL Immature Granulocyte # (Auto) 0.0 0.0-0.1 10^3/uL Erythrocyte Sedimentation Rate 5 0-20 MM/HR Sodium Level 141 135-145 MMOL/L Potassium Level 3.4 L 3.6-5.0 MMOL/L Chloride Level 105 98-107 MMOL/L Carbon Dioxide Level 23 21-32 MMOL/L Anion Gap 13 5-14 MMOL/L Blood Urea Nitrogen 12 7-18 MG/DL Creatinine 0.81 0.60-1.30 MG/DL Estimat Glomerular Filtration Rate > 60 BUN/Creatinine Ratio 15 Glucose Level 99 70-105 MG/DL Calcium Level 9.1 8.5-10.1 MG/DL Corrected Calcium 8.9 8.5-10.1 MG/DL Total Bilirubin 0.3 0.1-1.0 MG/DL Aspartate Amino Transf (AST/SGOT) 15 5-34 U/L Alanine Aminotransferase (ALT/SGPT) 20 0-55 U/L Alkaline Phosphatase 67 40-136 U/L C-Reactive Protein High Sensitivity 0.63 H 0.00-0.50 MG/DL Total Protein 7.3 6.4-8.2 GM/DL Albumin 4.3 3.2-4.5 GM/DL Urine Color YELLOW Urine Clarity CLEAR Urine pH 6.5 5-9 Urine Specific [place] 1.020 1.016-1.022 Urine Protein NEGATIVE NEGATIVE Urine Glucose (UA) NEGATIVE NEGATIVE Urine Ketones NEGATIVE NEGATIVE Urine Nitrite NEGATIVE NEGATIVE Urine Bilirubin NEGATIVE NEGATIVE Urine Urobilinogen 0.2 < = 1.0 MG/DL Urine Leukocyte Esterase NEGATIVE NEGATIVE Urine RBC (Auto) NEGATIVE NEGATIVE Urine RBC NONE /HPF Urine WBC NONE /HPF Urine Squamous Epithelial Cells 2-5 /HPF Urine Crystals NONE /LPF Urine Bacteria TRACE /HPF Urine Casts NONE /LPF Urine Mucus NEGATIVE /LPF Urine Culture Indicated NO My Orders Orders - SAUMYA FRANCISCO Ua Culture If Indicated (12/03/20 22:52) Urine Bedside (12/03/20 22:52) Cbc With Automated Diff (12/03/20 23:42) Comprehensive Metabolic Panel (12/03/20 23:42) Hs C Reactive Protein (12/03/20 23:42) Erythrocyte Sedimentation Rate (12/03/20 23:42) Ed Iv/Invasive Line Start (12/03/20 23:42) Lactated Ringers (Lr 1000 Ml Iv Solution (12/03/20 23:45) Ketorolac Injection (Toradol Injection) (12/03/20 23:45) Promethazine Injection (Phenergan Injec (12/03/20 23:45) Ct Head Wo (12/03/20 23:42) Medications Given in ED Current Medications Medications Dose Ordered Sig/Deny Route Start Time Stop Time Status Last Admin Dose Admin Ketorolac Tromethamine 30 mg ONCE ONCE IVP 12/03/20 23:45 12/03/20 23:46 DC 12/04/20 00:05 30 MG Lactated Ringer's 1,000 ml @ 0 mls/hr Q0M ONCE IV 12/03/20 23:45 12/03/20 23:46 DC 12/04/20 00:05 1,000 MLS/HR Promethazine HCl 25 mg ONCE ONCE IVP 12/03/20 23:45 12/03/20 23:46 DC 12/04/20 00:05 25 MG Vital Signs/I&O 12/03/20 12/04/20 23:00 01:55 Temp 37.1 Pulse 106 98 Resp 18 18 B/P (MAP) 133/92 (106) 133/92 (106) Pulse Ox 99 99 Progress Progress Note #1: Time: 23:53 Progress Note Could be related to viral symptoms drome but since she is having some difficulty walking and her symptoms predated her COVID-19 test by a month pseudotumor cerebri should be considered. We will get a CT and check some basic labs. Toradol and Phenergan for her symptoms. Liter of fluids. Progress Note #2: Time: 01:20 Progress Note Unfortunately the patient did not experience any significant pain relief from the Toradol Phenergan and IV fluids. Her labs are unremarkable. Suspect there could be a inflammatory or noninfectious source of her sinus headache pain. CT is unremarkable. We discussed these results with her and recommend she follow- up with ENT and if ENT was unable to locate the source of her headache the next step would be to consider neurology work-up possibly lumbar puncture. We did offer to do a lumbar puncture tonight to send off labs but encouraged her to pursue ENT work-up. Patient and this provider held a clinically supported decision-making process and she decided not to do the lumbar puncture tonight. She is not having any neurologic symptoms at this time that I can detect other than her occasional wobbly gait on history. We have encouraged her to take Tylenol and Motrin for her headache. Follow-up with Dr. Johnson for further discussion of possible etiologies. We offered another course of steroids but the patient says because of her bipolar disorder the last course of steroids pushed her towards kelley and she would prefer not to do it at this time. Diagnostic Imaging Diagonstic Imaging: CT Plain Films/CT/US/NM/MRI: head Comments Normal noncontrast of the head/brain on CT examination. Reviewed: Reviewed [place] Study, Reviewed by Me Departure Impression Primary Impression: Sinus headache Disposition: HOME, SELF-CARE Condition: Stable Departure-Patient Inst. Decision time for Depature: 01:20 Referrals: FABIO LOCK MD, RICK D MD (PCP/Family) Primary Care Physician Patient Instructions: Sinus Headache (DC) Add. Discharge Instructions: Tylenol 1000 mg every 8 hours as necessary for pain. Ibuprofen 800 mg every 8 hours as necessary for pain. Keep your follow-up appointment with ENT. Follow-up with Dr. Johnson for reevaluation as necessary. If you develop severe headache and fever or other worrisome symptoms then return to the ER nearest you. All discharge instructions reviewed with patient and/or family. Voiced understanding. Work/School Note: Work Release Form Date Seen in the Emergency Department: Dec 04, 2020 Return to Work: Dec 05, 2020 Restrictions: No Restrictions Copy Copies To 1: FABIO LOCK MD; LEYDI JOHNSON MD, TITUS J Dec 03, 2020 23:52
[2020-12-03 23:53] LABS: ALBUMIN 4.3 GM/DL (3.2-4.5); CHLORIDE 105 MMOL/L (98-107); POTASSIUM 3.4 MMOL/L (3.6-5.0); SODIUM 141 MMOL/L (135-145)
[2020-12-03 23:54] LABS: CALCIUM 9.1 MG/DL (8.5-10.1)
[2020-12-03 23:56] LABS: GLUCOSE 99 MG/DL (70-105); TOTAL PROTEIN 7.3 GM/DL (6.4-8.2)
[2020-12-03 23:57] LABS: BILIRUBIN,TOTAL 0.3 MG/DL (0.1-1.0); CARBON DIOXIDE 23 MMOL/L (21-32)
[2020-12-03 23:59] LABS: ALKALINE PHOSPHATASE 67 U/L (40-136); CREATININE SERUM 0.81 MG/DL (0.60-1.30); GFR ESTIMATED > 60
[2020-12-04 00:01] LABS: BUN/CREATININE RATIO 15
[2020-12-04 00:02] LABS: ALANINE AMINOTRANSFERASE 20 U/L (0-55)
[2020-12-04 00:06] LABS: ERYTHROCYTE SEDIMENTATION RATE 5 MM/HR (0-20)
[2020-12-04 01:55] VITALS: BP 133/92
--- NOTE | 2020-12-04 06:24 | Diagnostic Imaging Report ---
PROCEDURE: CT head without contrast. TECHNIQUE: Multiple contiguous axial images were obtained through the brain without the use of intravenous contrast. Auto Exposure Controls were utilized during the CT exam to meet ALARA standards for radiation dose reduction. INDICATION: Headache. Balance difficulty. COMPARISON: None. FINDINGS: No intracranial hemorrhage, mass effect, hydrocephalus or extra-axial fluid collection. No CT evidence for territorial infarction. Osseous structures are intact. Visualized paranasal sinuses and mastoids are clear. IMPRESSION: Negative head CT. Dictated by: Dictated on workstation # [id number]
== END 2020-12-04 01:55 | disposition home or self-care (01) ==
LOC: EDUNIT# 22:45 → ER 22:49
DX: R51.9 Headache, unspecified (principal)
CPT/HCPCS: 36415; 70450; 80053; 81000; 84703; 85025; 85652; 86141